=== PATIENT | male | born 1950 | race Caucasian/White ===

== ENCOUNTER → 2021-08-03 | Outpatient (CLI) | payer SELFPAY ==
--- NOTE | 2021-08-03 11:37 | Diagnostic Imaging Report ---
INDICATION: Hyperlipidemia. TECHNIQUE: The CT coronary calcium study was performed with noncontrast CT images of the heart followed by calculation of cardiac calcium score. FINDINGS: Raw data images demonstrate no mediastinal or hilar adenopathy. The thoracic aorta is normal in caliber. The visualized portions of the lung swann demonstrate some linear scarring or atelectasis in the lingula. The entirety of the lung swann is not included on the study. Coronary calcium evaluation demonstrates prominent coronary calcification in the LAD with a score of 405.4. There is some calcification also seen in the circumflex coronary artery with a score of 53.2. There is some calcium in the right coronary artery territory with a score of 46.3. IMPRESSION: Coronary calcium score was 505.0, compatible with an extensive calcific plaque burden. The majority of the calcification is in the LAD territory. Dictated by: Dictated on workstation # [id number]
== END ==
LOC: RAD FS 10:04
PROVIDERS: ATTEND Family Medicine
DX: E78.2 Mixed hyperlipidemia (principal); I25.10 Atherosclerotic heart disease of native coronary artery without angina pectoris
CPT/HCPCS: 75571

== ENCOUNTER → 2021-10-18 | Outpatient (CLI) | payer MEDICARE ==
--- NOTE | 2021-10-18 18:18 | Diagnostic Imaging Report ---
INDICATION: Arthritis COMPARISON: None. FINDINGS: Multiple radiographic views of the bilateral hands were obtained and show no fractures, dislocations, or other acute bony abnormalities. Mild osteoarthritic changes identified bilaterally. No periarticular erosions are seen. Joint spaces are otherwise well-maintained. The soft tissues appear unremarkable. No radiopaque foreign bodies are identified. IMPRESSION: Unremarkable radiographic exam of the bilateral hands. Dictated by: Dictated on workstation # [id number]
== END ==
LOC: RAD FS 14:52
PROVIDERS: ATTEND Family Medicine
DX: M19.049 Primary osteoarthritis, unspecified hand (principal)

== ENCOUNTER 2022-01-23 15:00 | Observation (INO) | payer MEDICARE ==
[~2022-01-23] VITALS: Ht 176 cm; Wt 91.0 kg
[2022-01-23] MEDS ORDERED: KETOROLAC 30 MG/ML VIAL IVP STA (15:35)
--- NOTE | 2022-01-23 15:38 | ED GU-Male ---
General Stated Complaint: KIDNEY STONES Source: patient History of Present Illness Date Seen by Provider: Jan 23, 2022 Time Seen by Provider: 15:27 Initial Comments PT ARRIVES VIA POV FROM HOME IN [place] STATES HE HAS A KIDNEY STONE IN THE RIGHT PT BEGAN HAVING RIGHT FLANK PAIN LAST Sunday01/19/22 WENT TO THE [facility] WALK IN [facility]INIC IN [place] ON SUNDAY/YESTERDAY FOR THIS PROBLEM AND HAD AN OUTPATIENT CT DONE AT [facility] HERE IN [place] TODAY. NO RX'S GIVEN HAD JUST GOTTEN BACK HOME TO [place] AND WAS CONTACTED BY [facility] AND ADVISED TO COME HERE TO THIS ER TO HAVE DR. SHANNON SEE HIM. PT DOES NOT HAVE A HISTORY OF KIDNEY STONES PT STATES PAIN WAS 10/10 YESTERDAY RATES PAIN 8/10 NOW TOOK 2 TYLENOL AT 0700, NOTHING ELSE FOR PAIN NO NAUSEA/VOMITING NO FEVER NO DIFFICULTY URINATING PCP: DR. OLEA, [facility] Allergies and Home Medications Allergies Coded Allergies: No Known Drug Allergies (Unverified , 01/23/22) Patient Home Medication List Home Medication List Reviewed: Yes Aspirin (Aspirin EC) 81 Mg Tablet.dr, 81 MG PO DAILY, (Reported) Entered as Reported by: BRIE ESCOTO on 01/24/221447 Last Action: Reviewed Celecoxib (Celecoxib) 200 Mg Capsule, 200 MG PO HS, (Reported) Entered as Reported by: BRIE ESCOTO on 01/24/221447 Last Action: Reviewed Fluticasone/Salmeterol (Advair Hfa 115-21 Mcg Inhaler) 115 Mcg-21 Mcg/Actuation Hfa.aer.ad, 2 PUFF INH BID PRN for SHORTNESS OF BREATH, (Reported) Entered as Reported by: BRIE ESOCTO on 01/24/221448 Last Action: Reviewed Losartan Potassium (Losartan Potassium) 50 Mg Tablet, 50 MG PO DAILY, (Reported) Entered as Reported by: BRIE ESCOTO on 01/24/221447 Last Action: Reviewed Nitrofurantoin Monohyd/M-Cryst (Macrobid 100 mg Capsule) 100 Mg Capsule, 1 TAB PO BID Prescribed by: NANCY SANCHEZ on 01/24/22 1454 Rosuvastatin Calcium (Rosuvastatin Calcium) 20 Mg Tablet, 20 MG PO HS, (Reported) Entered as Reported by: BRIE ESCOTO on 01/24/22 1448 Last Action: Reviewed Tamsulosin HCl (Flomax) 0.4 Mg Cap, 0.4 MG PO DAILY Prescribed by: NANCY SANCHEZ on 01/24/22 7744 Review of Systems Review of Systems Constitutional: no symptoms reported Respiratory: no symptoms reported Cardiovascular: no symptoms reported Gastrointestinal: see HPI Genitourinary: see HPI Musculoskeletal: see HPI Skin: no symptoms reported; No rash Psychiatric/Neurological: No Symptoms Reported Endocrine: No Symptoms Reported Past Kcqmsdw-Wadxad-Oqsjjm Hx Patient Social History Tobacco Use?: No Substance use?: No Alcohol Use?: No Past Medical History Surgeries: Yes (BACK SURGERY) Orthopedic Respiratory: No Cardiac: Yes High Cholesterol, Hypertension Neurological: No Genitourinary: Yes (DX 01/23/22) Kidney Stones Gastrointestinal: No Musculoskeletal: Yes Chronic Back Pain Endocrine: No HEENT: No Cancer: No Integumentary: No Blood Disorders: No Physical Exam Vital Signs Vital Signs - First Documented 01/23/22 15:29 Pulse 79 Resp 20 B/P (MAP) 168/93 (118) Pulse Ox 97 Capillary Refill : Height, Weight, BMI Height: '" Weight: lbs. oz. 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 tested, no motor/sensory deficits, alert, normal mood/affect, oriented x 3 Skin: normal color, warm/dry; No rash Progress/Results/Core Measures Suspected Sepsis SIRS Temperature: Pulse: Respiratory Rate: Laboratory Tests 01/23/22 15:37: White Blood Count 6.7 Blood Pressure / Mean: Laboratory Tests 01/23/22 15:37: Creatinine 1.73H, Platelet Count 157, Total Bilirubin 0.7 Results/Orders Lab Results Laboratory Tests Test 01/23/22 15:37 01/23/22 15:50 Range/Units White Blood Count 6.7 4.3-11.0 10^3/uL Red Blood Count 3.82 L 4.30-5.52 10^6/uL Hemoglobin 12.1 L 13.3-17.7 g/dL Hematocrit 36 L 40-54 % Mean Corpuscular Volume 94 80-99 fL Mean Corpuscular Hemoglobin 32 25-34 pg Mean Corpuscular Hemoglobin Concent 34 32-36 g/dL Red Cell Distribution Width 13.2 10.0-14.5 % Platelet Count 157 130-400 10^3/uL Mean Platelet Volume 10.1 9.0-12.2 fL Immature Granulocyte % (Auto) 0 % Neutrophils (%) (Auto) 67 42-75 % Lymphocytes (%) (Auto) 17 12-44 % Monocytes (%) (Auto) 10 0-12 % Eosinophils (%) (Auto) 6 0-10 % Basophils (%) (Auto) 0 0-10 % Neutrophils # (Auto) 4.5 1.8-7.8 X 10^3 Lymphocytes # (Auto) 1.1 1.0-4.0 X 10^3 Monocytes # (Auto) 0.7 0.0-1.0 X 10^3 Eosinophils # (Auto) 0.4 H 0.0-0.3 10^3/uL Basophils # (Auto) 0.0 0.0-0.1 10^3/uL Immature Granulocyte # (Auto) 0.0 0.0-0.1 10^3/uL Sodium Level 139 135-145 MMOL/L Potassium Level 3.9 3.6-5.0 MMOL/L Chloride Level 106 98-107 MMOL/L Carbon Dioxide Level 24 21-32 MMOL/L Anion Gap 9 5-14 MMOL/L Blood Urea Nitrogen 20 H 7-18 MG/DL Creatinine 1.73 H 0.60-1.30 MG/DL Estimat Glomerular Filtration Rate 41 BUN/Creatinine Ratio 12 Glucose Level 143 H 70-105 MG/DL Calcium Level 9.1 8.5-10.1 MG/DL Corrected Calcium 9.2 8.5-10.1 MG/DL Total Bilirubin 0.7 0.1-1.0 MG/DL Aspartate Amino Transf (AST/SGOT) 16 5-34 U/L Alanine Aminotransferase (ALT/SGPT) 19 0-55 U/L Alkaline Phosphatase 71 40-136 U/L Total Protein 6.9 6.4-8.2 GM/DL Albumin 3.9 3.2-4.5 GM/DL Urine Color YELLOW Urine Clarity CLEAR Urine pH 5.5 5-9 Urine Specific Carpenter 1.010 L 1.016-1.022 Urine Protein NEGATIVE NEGATIVE Urine Glucose (UA) NEGATIVE NEGATIVE Urine Ketones NEGATIVE NEGATIVE Urine Nitrite NEGATIVE NEGATIVE Urine Bilirubin NEGATIVE NEGATIVE Urine Urobilinogen 0.2 < = 1.0 MG/DL Urine Leukocyte Esterase NEGATIVE NEGATIVE Urine RBC (Auto) 3+ H NEGATIVE Urine RBC 2-5 H /HPF Urine WBC NONE /HPF Urine Squamous Epithelial Cells NONE /HPF Urine Crystals NONE /LPF Urine Bacteria TRACE /HPF Urine Casts NONE /LPF Urine Mucus NEGATIVE /LPF Urine Culture Indicated NO My Orders Orders - RADHA PIZANO DO Ed Iv/Invasive Line Start (01/23/22 15:19) Monitor-Rhythm Ecg Trace Only (01/23/22 15:19) Abdomen/Kub 1view (01/23/22 15:19) Cbc With Automated Diff (01/23/22 15:19) Comprehensive Metabolic Panel (01/23/22 15:19) Ua Culture If Indicated (01/23/22 15:19) Ketorolac Injection (Toradol Injection) (01/23/22 15:35) Tamsulosin Capsule (Flomax Capsule) (01/23/22 15:45) Ed Iv/Invasive Line Start (01/23/22 15:35) Lactated Ringers (Lr 1000 Ml Iv Solution (01/23/22 15:45) Ct Abd/Pelvis Wo(Kidney Stone) (01/23/22 16:10) Ed Admission (Communication) (01/23/22 17:10) Ceftriaxone 1 Gm Pre-Mix (Rocephin 1 Gm (01/23/22 17:15) Medications Given in ED Vital Signs/I&O 01/23/22 15:29 Pulse 79 Resp 20 B/P (MAP) 168/93 (118) Pulse Ox 97 Capillary Refill : Progress Note : Progress Note GIVEN IV FLUIDS, TORADOL AND FLOMAX WITH COMPLETE RELIEF OF PAIN Diagnostic Imaging Comments KUB--PER RADIOLOGIST REPORT AT 1655 FINDINGS: There is a moderate amount of gas and stool throughout the colon. Nonobstructive bowel gas pattern. No radiopaque foreign body. Lumbosacral fusion hardware is present. Degenerative changes of the hips and spine. Osseous structures are otherwise intact. IMPRESSION: Moderate stool burden without other acute abnormality in the abdomen. CT ABDOMEN/PELVIS--PER RADIOLOGIST REPORT AT 1706 FINDINGS: Lung bases: Linear atelectasis or scarring in the lung bases. Solid organs: The liver is normal. The gallbladder is normal. There is no biliary ductal dilation. Pancreas is normal. Spleen is normal. Adrenal glands are normal. There is mild right hydronephrosis. There is a 0.4 cm calculus within the distal right ureter. The left kidney is unremarkable without hydronephrosis. There is a nonobstructing right renal calculus measuring 0.2 cm. Bowel: The stomach and small bowel are normal without obstruction. There is scattered colonic diverticulosis. No findings of acute appendicitis. Peritoneum: There is no intraperitoneal free fluid or free air. No suspicious lymphadenopathy. Vasculature: Calcification of the aorta without aneurysm. Musculoskeletal: Surgical and degenerative changes of the spine without suspicious osseous lesion or compression fracture. Pelvis: The prostate gland is normal. The urinary bladder is normal. IMPRESSION: 1. A 0.4 cm distal right ureteral calculus resulting in mild right hydronephrosis. 2. Additional nonobstructing right renal calculus measuring up to 0.2 cm. 3. Colonic diverticulosis. Reviewed: Reviewed by Me Departure Communication (Admissions) 1608--SPOKE WITH DR. SHANNON, HE ADVISES REPEAT CT SCAN, THERE IS NO WAY FOR HIM OR ME OR VIA [facility] TO REVIEW CT DONE AT [facility] 1655--SPOKE WITH DR. SHANNON, HE WILL REVIEW CT SCAN AND CALL BACK 1707--SPOKE WITH DR. SHANNON, HE ADVISES TO ADMIT PT TO HOSPITALIST, AND HE WILL DO LITHOTRIPSY TOMORROW. 1709/1739--PAGED / SPOKE WITH DR. ALCANTAR, ACCEPTS PT FOR ADMIT. 1746--DR. SHANNON HERE TO SEE PT. Impression Primary Impression: Right distal ureteral calculus Additional Impressions: Renal insufficiency HTN (hypertension) Disposition: ADMITTED INPATIENT Condition: Improved Admissions Decision to Admit Reason: Admit from ER (General) Decision to Admit/Date: Jan 23, 2022 Time/Decision to Admit Time: 17:10 Departure-Patient Inst. Referrals: SELF,CLAIRE MOMIN (PCP/Family) Primary Care Physician Scripts Tamsulosin HCl (Flomax) 0.4 Mg Cap 0.4 MG PO DAILY, #14 CAP Prov: HORACIO SHANNON MD 01/24/22 Nitrofurantoin Monohyd/M-Cryst (Macrobid 100 mg Capsule) 100 Mg Capsule 1 TAB PO BID, #14 CAP Prov: HORACIO SHANNON MD 01/24/22 RADHA PIZANO DO Jan 23, 2022 15:38
[2022-01-23 15:45] LABS: BASOPHILS % (AUTO) 0 % (0-10); EOSINOPHILS # (AUTO) 0.4 10^3/uL (0.0-0.3); EOSINOPHILS % (AUTO) 6 % (0-10); HEMATOCRIT 36 % (40-54); HEMOGLOBIN 12.1 g/dL (13.3-17.7); LYMPHOCYTES # (AUTO) 1.1 X 10^3 (1.0-4.0); LYMPHOCYTES % (AUTO) 17 % (12-44); MEAN CORPUSCULAR HEMOGLOBIN 32 pg (25-34); MEAN CORPUSCULAR HGB CONC 34 g/dL (32-36); MEAN CORPUSCULAR VOLUME 94 fL (80-99); MEAN PLATELET VOLUME 10.1 fL (9.0-12.2); MONOCYTES # (AUTO) 0.7 X 10^3 (0.0-1.0); MONOCYTES % (AUTO) 10 % (0-12); NEUTROPHILS # (AUTO) 4.5 X 10^3 (1.8-7.8); NEUTROPHILS % (AUTO) 67 % (42-75); PLATELET COUNT 157 10^3/uL (130-400); WHITE BLOOD COUNT 6.7 10^3/uL (4.3-11.0)
[2022-01-23] MEDS ORDERED: TAMSULOSIN 0.4 MG (FLOMAX) CAP PO SCH (15:45)
[2022-01-23] MEDS ORDERED: LACTATED RINGERS 1,000 ML IV ONE (15:45)
[2022-01-23 15:56] LABS: BILIRUBIN,URINE NEGATIVE (NEGATIVE); CLARITY,URINE CLEAR; COLOR,URINE YELLOW; GLUCOSE, URINE (UA) NEGATIVE (NEGATIVE); KETONES,URINE NEGATIVE (NEGATIVE); LEUKOCYTE ESTERASE ,URINE NEGATIVE (NEGATIVE); NITRITE,URINE NEGATIVE (NEGATIVE); PH,URINE 5.5 (5-9); PROTEIN,URINE NEGATIVE (NEGATIVE)
[2022-01-23 15:59] LABS: ALBUMIN 3.9 GM/DL (3.2-4.5); POTASSIUM 3.9 MMOL/L (3.6-5.0)
[2022-01-23 16:00] LABS: CALCIUM 9.1 MG/DL (8.5-10.1)
[2022-01-23 16:02] LABS: TOTAL PROTEIN 6.9 GM/DL (6.4-8.2)
[2022-01-23 16:03] LABS: BILIRUBIN,TOTAL 0.7 MG/DL (0.1-1.0)
[2022-01-23 16:05] LABS: CREATININE SERUM 1.73 MG/DL (0.60-1.30)
--- NOTE | 2022-01-23 16:08 | Diagnostic Imaging Report ---
EXAMINATION: Abdomen 1 view HISTORY: abdomen pain COMPARISON: None available. FINDINGS: There is a moderate amount of gas and stool throughout the colon. Nonobstructive bowel gas pattern. No radiopaque foreign body. Lumbosacral fusion hardware is present. Degenerative changes of the hips and spine. Osseous structures are otherwise intact. IMPRESSION: Moderate stool burden without other acute abnormality in the abdomen. Dictated by: Dictated on workstation # [id number]
[2022-01-23 16:40] LABS: BACTERIA,URINE TRACE /HPF
--- NOTE | 2022-01-23 16:58 | Diagnostic Imaging Report ---
EXAMINATION: CT abdomen and pelvis without contrast. TECHNIQUE: Multiple contiguous axial images were obtained through the abdomen and pelvis without the use of intravenous contrast. All CT scans use one or more of the following dose optimizing techniques: Automated exposure control, MA and/or KvP adjustment based on patient size and exam type or iterative reconstruction. HISTORY: Flank pain, kidney stone suspected COMPARISON: None available. FINDINGS: Lung bases: Linear atelectasis or scarring in the lung bases. Solid organs: The liver is normal. The gallbladder is normal. There is no biliary ductal dilation. Pancreas is normal. Spleen is normal. Adrenal glands are normal. There is mild right hydronephrosis. There is a 0.4 cm calculus within the distal right ureter. The left kidney is unremarkable without hydronephrosis. There is a nonobstructing right renal calculus measuring 0.2 cm. Bowel: The stomach and small bowel are normal without obstruction. There is scattered colonic diverticulosis. No findings of acute appendicitis. Peritoneum: There is no intraperitoneal free fluid or free air. No suspicious lymphadenopathy. Vasculature: Calcification of the aorta without aneurysm. Musculoskeletal: Surgical and degenerative changes of the spine without suspicious osseous lesion or compression fracture. Pelvis: The prostate gland is normal. The urinary bladder is normal. IMPRESSION: 1. A 0.4 cm distal right ureteral calculus resulting in mild right hydronephrosis. 2. Additional nonobstructing right renal calculus measuring up to 0.2 cm. 3. Colonic diverticulosis. Dictated by: Dictated on workstation # [id number]
[2022-01-23] MEDS ORDERED: cefTRIAXone 1 GM PRE-MIX 50 ML IV ONE (17:15)
[2022-01-23 18:42] VITALS: BP 159/82
[2022-01-23] MEDS ORDERED: diphenhydrAMINE 50 MG/ML INJ (BENADRYL) IVP PRN (18:45)
[2022-01-23] MEDS ORDERED: BISACODYL 10 MG SUPP (DULCOLAX) PR PRN (18:45)
[2022-01-23] MEDS ORDERED: CALCIUM CARBONATE 500 MG (TUMS) TAB.CHEW PO PRN (18:45)
[2022-01-23] MEDS ORDERED: polyethylene glycoL POWDER 17 GM (MIRALAX) PACK PO PRN (18:45)
[2022-01-23] MEDS ORDERED: cloNIDine 0.1 MG (CATAPRES) TAB PO PRN (18:45)
[2022-01-23] MEDS ORDERED: ONDANSETRON 4 MG/2 ML (SDV) Z0FRAN IV PRN (18:45)
[2022-01-23] MEDS ORDERED: ONDANSETRON 4 MG (ZOFRAN) ORAL DISSOLVE TAB PO PRN (18:45)
[2022-01-23] MEDS ORDERED: HYDROmorphone 2 MG/ML VIAL (DILAUDID) IVP PRN (18:45)
[2022-01-23] MEDS ORDERED: amLODIPine 5 MG (NORVASC) TAB PO NR (18:45)
[2022-01-23] MEDS ORDERED: ANTACID SUSP 30 ML UDC (MYLANTA) PO PRN (18:45)
[2022-01-23] MEDS ORDERED: diphenhydrAMINE 25 MG TAB (BENADRYL) PO PRN (18:45)
[2022-01-23] MEDS ORDERED: MELATONIN 3 MG TABLET PO PRN (18:45)
[2022-01-23] MEDS ORDERED: MILK OF MAGNESIA 400 MG/5 ML 30 ML UDC PO PRN (18:45)
[2022-01-23] MEDS ORDERED: LACTULOSE SYRUP 10GM/15ML (ENULOSE) 30ML UDC PO PRN (18:45)
[2022-01-23] MEDS ORDERED: ACETAMINOPHEN 325 MG TABLET PO PRN (18:45)
--- NOTE | 2022-01-23 18:48 | History & Physical-Hospitalist ---
History of Present Illness HPI/Chief Complaint CC: Kidney stone with renal colic and hydronephrosis with TIARRA HPI: This is a 71yoWM clinic patient of [facility] who presents to the ER with severe renal colic due to kidney stone. The stone was found to be in the ureter and c ausing hydronephrosis and TIARRA. The decision was made to admit for IVF and pain meds and lithotripsy will be performed to prevent kidney failure. Source: patient, family Exam Limitations: no limitations Date Seen 01/23/22 Time Seen by a Provider: 18:45 Attending Physician Roly Ledesma MD PCP Admitting Physician: Liza Jay DO Attending Physician: Liza Jay DO Referring Physician Date of Admission Jan 23, 2022 at 17:11 Home Medications & Allergies Home Medications Reviewed patient Home Medication Reconciliation performed by pharmacy medication reconciliations tire and lube technician and/or nursing. Patients Allergies have been reviewed. Allergies Allergies Coded Allergies No Known Drug Allergies (Unverified01/23/22) Past Xcmxpcq-Cwqbtj-Ioodjf Hx Patient Social History Marrital Status: Employed/Student: retired Tobacco Use?: No Smoking Status: Former Smoker Use of E-Cig and/or Vaping dev: No Substance use?: No Alcohol Use?: No Current Status Communicates: Verbally Primary Language: Mongolian Preferred Spoken Language: Mongolian Is interpretation needed?: No Sensory deficits: Hearing impairment Past Medical History High Cholesterol, Hypertension Review of Systems Constitutional: see HPI, malaise, weakness EENTM: no symptoms reported Respiratory: no symptoms reported Cardiovascular: no symptoms reported Gastrointestinal: abdominal pain, loss of appetite, nausea, vomiting Genitourinary: decreased output Musculoskeletal: no symptoms reported Skin: no symptoms reported Psychiatric/Neurological: No Symptoms Reported All Other Systems Reviewed Negative Unless Noted: Yes Physical Exam Physical Exam Vital Signs Vital Signs - First Documented 01/23/22 01/23/22 01/23/22 15:29 18:42 19:22 Temp 36.5 Pulse 79 Resp 20 B/P (MAP) 168/93 (118) Pulse Ox 97 O2 Delivery Room Air FiO2 21 Capillary Refill : Height, Weight, BMI Height: '" Weight: lbs. oz. kg; 27.00 BMI Method: General Appearance: Anxious, Mild Distress Eyes: Right Eye Normal Inspection, Right Eye PERRL HEENT: PERRL/EOMI, Normal ENT Inspection, Pharynx Normal, Moist Mucous Membranes Neck: Full Range of Motion, Normal Inspection, Non Tender Respiratory: Chest Non Tender, Lungs Clear, Normal Breath Sounds, No Accessory Muscle Use, No Respiratory Distress Cardiovascular: Regular Rate, Rhythm, No Edema, No Gallop, No JVD, No Murmur, Normal Peripheral Pulses Gastrointestinal: Normal Bowel Sounds, No Organomegaly, No Pulsatile Mass, Non Tender, Soft Back: Normal Inspection, No CVA Tenderness, No Vertebral Tenderness Extremity: Normal Capillary Refill, Normal Inspection, Normal Range of Motion, Non Tender, No Calf Tenderness, No Pedal Edema Neurologic/Psychiatric: Alert, Oriented x3, No Motor/Sensory Deficits, Normal Mood/Affect Skin: Normal Color, Warm/Dry Lymphatic: No Adenopathy Results Results/Procedures Labs Laboratory Tests 01/23/22 15:37 Patient resulted labs reviewed. Assessment/Plan Admission Diagnosis Assessment: Acute renal colic Right ureteral stone causing hydronephrosis with TIARRA HTN HLP Plan: IVF Pain meds Dr Figueroa appreciated Admission Status: Observation Diagnosis/Problems Diagnosis/Problems (1) Right distal ureteral calculus (2) HTN (hypertension) (3) Renal insufficiency Clinical Quality Measures DVT/VTE Risk/Contraindication: Contraindications-Pharm: Other *list below* Other: surgery tomorrow LIZA JAY DO Jan 23, 2022 18:48
[2022-01-23] MEDS: NS IV 1000 ML 1,000 ML IV SCH (18:51)
[2022-01-23 19:22] VITALS: BP 168/93
[2022-01-23] MEDS ORDERED: RT-ALBUTEROL SULF 2.5 MG/3 ML PRE-MIX VIAL INH PRN (19:45)
[2022-01-23 20:00] VITALS: BP 153/82
[2022-01-23] MEDS: DOCUSATE SODIUM 100 MG (COLACE) CAP PO SCH (21:44)
[2022-01-23] MEDS: SENNOSIDES 8.6 MG (SENOKOT) TAB PO SCH (21:45)
[2022-01-23] MEDS: TAMSULOSIN 0.4 MG (FLOMAX) CAP PO SCH (21:47)
--- NOTE | 2022-01-23 22:17 | CONSULTATION REPORT ---
DATE OF SERVICE: 01/23/2022 ATTENDING PHYSICIAN: Dr. Jay. SUMMARY: After reviewing the patient's record, x-rays, interviewing him and examining him, this is a 71-year-old white man another ER visit because of severe intractable right flank pain secondary to a distal right ureteral stone. He denied previous similar episodes. FAMILY HISTORY: Noncontributory. MEDICAL ILLNESSES: Hypertension for which he takes medicines per chart. His vitals were reviewed, his labs as well. PHYSICAL EXAMINATION: GENERAL: Well-nourished, well-developed, in no acute distress at the time of my examination, the patient has been medicated with pain medicines. HEENT: Head is normocephalic. NECK: Supple, no bruits. SKIN: Warm and dry. ENT: Unremarkable. CHEST: Clear. HEART: Regular rate and rhythm. ABDOMEN: Soft. There was a 1+ right CVA tenderness. EXTREMITIES: Lower extremity, no edema or cyanosis. NEUROLOGIC: Grossly intact. EXTERNAL GENITALIA: Adequate male configuration. RECTAL: Deferred. IMPRESSION: 1. Right distal ureteral stone with pain, obstruction. 2. Hypertension by history. 3. Some renal insufficiency at the present admission, most probably secondary to obstruction from the stone. PLAN: Continue admission plan with pain control, hydration, strain all urine, antibiotics and Flomax. Keep the patient n.p.o. after midnight, get a KUB in the morning and proceed with surgery tomorrow unless he passes the stone. Proceeding with a right ureteroscopy with stone lithotripsy, possible basket, stent, ESWL or lithotomy. Procedure was fully explained to him and his and all his questions were answered. Need for more than one surgery for the stone was also stressed. CC: [facility] -- requested, unable to deliver. CC: Dr. Betzy Salinas -- requested, unable to deliver. Job ID: [id number] DocumentID: [id number] Dictated Date: 01/23/2022 18:12:19 [employer] Date: 01/23/2022 22:16:45 Dictated By: HORACIO SHANNON MD [facility]
[2022-01-23 23:07] VITALS: BP 129/69
[2022-01-24] VITALS (11 sets, daily range): BP systolic 90–161; BP diastolic 56–78
[2022-01-24] MEDS: NS IV 1000 ML 1,000 ML IV SCH ×2 (03:29→12:39)
--- NOTE | 2022-01-24 05:51 | Progress Note - Hospitalist ---
Subjective HPI/CC On Admission Date Seen by Provider: Jan 24, 2022 Time Seen by Provider: 09:00 CC: Kidney stone with renal colic and hydronephrosis with TIARRA HPI: This is a 71yoWM clinic patient of [facility] who presents to the ER with severe renal colic due to kidney stone. The stone was found to be in the ureter and causing hydronephrosis and TIARRA. The decision was made to admit for IVF and pain meds and lithotripsy will be performed to prevent kidney failure. Objective Exam Vital Signs Vital Signs Date Time Temp Pulse Resp B/P (MAP) Pulse Ox O2 Delivery O2 Flow Rate FiO2 01/24/22 15:39 36.5 66 19 161/75 97 Room Air 01/24/22 11:20 3 01/23/22 19:22 21 Capillary Refill : Results/Procedures Lab Laboratory Tests 01/24/22 05:30 Patient resulted labs reviewed. Assessment/Plan Assessment and Plan Assess & Plan/Chief Complaint Assessment: Acute renal colic Right ureteral stone causing hydronephrosis with TIARRA HTN HLP Plan: IVF Pain meds Dr Figueroa appreciated Diagnosis/Problems Diagnosis/Problems (1) Right distal ureteral calculus (2) HTN (hypertension) (3) Renal insufficiency Clinical Quality Measures DVT/VTE Risk/Contraindication: Contraindications-Pharm: Other *list below* Other: surgery tomorrow LIZA ALCANTAR DO Jan 24, 2022 05:51
[2022-01-24 06:05] LABS: BASOPHILS % (AUTO) 1 % (0-10); EOSINOPHILS # (AUTO) 0.5 10^3/uL (0.0-0.3); EOSINOPHILS % (AUTO) 8 % (0-10); HEMATOCRIT 35 % (40-54); HEMOGLOBIN 11.3 g/dL (13.3-17.7); LYMPHOCYTES # (AUTO) 1.2 10^3/uL (1.0-4.0); LYMPHOCYTES % (AUTO) 19 % (12-44); MEAN CORPUSCULAR HEMOGLOBIN 31 pg (25-34); MEAN CORPUSCULAR HGB CONC 33 g/dL (32-36); MEAN CORPUSCULAR VOLUME 96 fL (80-99); MEAN PLATELET VOLUME 10.7 fL (9.0-12.2); MONOCYTES # (AUTO) 0.6 10^3/uL (0.0-1.0); MONOCYTES % (AUTO) 9 % (0-12); NEUTROPHILS # (AUTO) 3.9 10^3/uL (1.8-7.8); NEUTROPHILS % (AUTO) 64 % (42-75); PLATELET COUNT 139 10^3/uL (130-400); WHITE BLOOD COUNT 6.2 10^3/uL (4.3-11.0)
[2022-01-24 06:13] LABS: ALBUMIN 3.4 GM/DL (3.2-4.5)
[2022-01-24 06:15] LABS: CALCIUM 8.6 MG/DL (8.5-10.1)
[2022-01-24 06:18] LABS: BILIRUBIN,TOTAL 0.5 MG/DL (0.1-1.0)
[2022-01-24 06:19] LABS: CREATININE SERUM 1.87 MG/DL (0.60-1.30)
--- NOTE | 2022-01-24 07:21 | Progress Note-Pre Operative ---
Pre-Operative Progress Note H&P Reviewed The H&P was reviewed, patient examined and no changes noted. Date Seen by Provider: Jan 24, 2022 Time Seen by Provider: 07:20 Date H&P Reviewed: Jan 24, 2022 Time H&P Reviewed: 07:20 Pre-Operative Diagnosis: RT DISTAL URETERAL STONE HORACIO SHANNON MD Jan 24, 2022 07:21
--- NOTE | 2022-01-24 08:21 | Diagnostic Imaging Report ---
INDICATION: History of distal ureteral calculus. COMPARISON: 01/23/2022 FINDINGS: 2 frontal radiographic views of the abdomen were obtained. Small bowel loops are nondistended. There is no large collection of free intraperitoneal air. Moderate air and stool is noted within the ascending colon. No unexpected radiopaque foreign bodies are seen. Multiple extraosseous calcifications are noted projecting over the pelvis, bilaterally. It is unclear if these represent vascular calcifications or patient's known distal right ureteral calculus. Appearance is stable compared to one day prior. IMPRESSION: 1. Nonobstructed small bowel gas pattern. 2. Multiple pelvic extraosseous calcifications. Appearance is stable compared to 01/23/2022. Dictated by: Dictated on workstation # [id number]
[2022-01-24] MEDS: DOCUSATE SODIUM 100 MG (COLACE) CAP PO SCH (08:25)
[2022-01-24] MEDS: SENNOSIDES 8.6 MG (SENOKOT) TAB PO SCH (08:26)
[2022-01-24] MEDS: TAMSULOSIN 0.4 MG (FLOMAX) CAP PO SCH (08:26)
[2022-01-24] MEDS ORDERED: amLODIPine 5 MG (NORVASC) TAB PO SCH (09:00)
[2022-01-24] MEDS ORDERED: cefTRIAXone 1 GM PRE-MIX 50 ML IV SCH (09:00)
[2022-01-24] MEDS: LACTATED RINGERS 1,000 ML IV PRN ×2 (09:46→11:01)
--- NOTE | 2022-01-24 09:54 | Progress Note-Post Operative ---
Post-Operative Progess Note Surgeon (s)/[employer] (s) Surgeon HORACIO SHANNON MD [employer]: NONE Pre-Operative Diagnosis RT DISTAL URETERAL STONE Post-Operative Diagnosis SAME Procedure & Operative Findings Date of Procedure 01/24/22 Procedure Performed/Findings RT ESWL Anesthesia Type GENERAL Estimated Blood Loss Estimated blood loss (mL): NONE Specimens/Packing Specimens Removed NONE Packing: NONE HORACIO SHANNON MD Jan 24, 2022 09:54
[2022-01-24] MEDS ORDERED: proPOfol 200 MG/20 ML (DIPRIVAN) VIAL IV ONE (10:12)
[2022-01-24] MEDS ORDERED: fentaNYL INJ 100 MCG/2 ML AMP ONE (10:12)
[2022-01-24] MEDS ORDERED: LIDOCAINE PF 2% 5 ML (XYLOCAINE) VIAL ONE (10:12)
[2022-01-24] MEDS ORDERED: ONDANSETRON 4 MG/2 ML (SDV) Z0FRAN ONE (10:12)
[2022-01-24] MEDS ORDERED: GLYCOPYRROLATE 0.2 MG/ML (ROBINUL) 2 ML VIAL ONE (10:49)
[2022-01-24] MEDS ORDERED: KETOROLAC 30 MG/ML VIAL ONE (10:51)
[2022-01-24] MEDS ORDERED: FUROSEMIDE 40 MG/4 ML INJ (LASIX) ONE (10:51)
--- NOTE | 2022-01-24 10:55 | Discharge Inst-Urology ---
Discharge Inst-Urology Reconcile Patient Problems Problems Reviewed?: Yes Final Diagnosis RT DISTAL URETERAL STONE Patient Instructions/Follow Up Plan/Assessment/Instructions Discharge once awake, stable, tolerates PO fluids and OK with admitting physician Please make appointment to been seen in office in 2 weeks, KUB prior to it please give patient my written slip. KUB on way home today Post ESWL instructions to patient Increase oral fluids for 48 hours and then as needed. Diet and Activity as tolerated. If questions or concerns contact your physician Or seek help at emergency department. HORACIO SHANNON MD Jan 24, 2022 10:55
[2022-01-24] MEDS ORDERED: SEVOFLURANE (ULTANE) 15 ML INHAL SOLN ONE (11:08)
[2022-01-24] MEDS ORDERED: ONDANSETRON 4 MG/2 ML (SDV) Z0FRAN IVP PRN (11:15)
[2022-01-24] MEDS ORDERED: morphine INJ 10 MG/ML 1ML (SYR OR VIAL) IVP ONE (11:15)
[2022-01-24] MEDS ORDERED: CELE-63 PO (14:48)
[2022-01-24] MEDS ORDERED: LOSA50TA63 PO (14:48)
[2022-01-24] MEDS ORDERED: ROSU20TA32 PO (14:48)
[2022-01-24] MEDS ORDERED: ASPI-1238 PO (14:48)
[2022-01-24] MEDS ORDERED: FLUT12AE4 INH (14:49)
[2022-01-24] MEDS ORDERED: NITR-65 PO (14:54)
[2022-01-24] MEDS ORDERED: TMSL.4C PO (14:54)
--- NOTE | 2022-01-24 15:03 | OPERATIVE REPORT ---
DATE OF SERVICE: 01/24/2022 PREOPERATIVE DIAGNOSIS: Right distal ureteral stone. POSTOPERATIVE DIAGNOSIS: Right distal ureteral stone. OPERATION PERFORMED: Right ESWL. SURGEON: Js Shannon MD ANESTHESIA: General. COMPLICATIONS: None. DESCRIPTION OF PROCEDURE: Under satisfactory general anesthesia, the patient in supine position on the ESWL table, the right distal ureteral stone was localized. Shocks were delivered at kV of 6, 2500 shocks completely fragmented the stone. The patient received 50 mg of Toradol, and 40 mg of Lasix IV at the end of the procedure. He tolerated the procedure and anesthesia well and was sent to recovery room in stable condition. CC: [facility] - requested, unable to deliver. CC: Dr. Jay - requested, unable to deliver. Job ID: [id number] DocumentID: [id number] Dictated Date: 01/24/2022 10:56:57 [employer] Date: 01/24/2022 15:02:39 Dictated By: JS SHANNON MD
--- NOTE | 2022-01-24 15:43 | Diagnostic Imaging Report ---
INDICATION: Post ESWL. COMPARISON: Exam is compared with radiograph earlier this same date and correlated with abdominopelvic CT 01/23/2022. FINDINGS: At the level of the distal right ureteral stone as demonstrated at earlier CT, there are multiple vascular calcifications more posteriorly as well as anteriorly which project over the level of that prior stone and may easily obscure that lesion. Left pelvic calcifications are unchanged and phleboliths. No new abnormality. There has been no appreciable change. IMPRESSION: No convincing visualization of ureteral stones; however, this patient has multiple pelvic calcifications outside the ureter on the right at the very same level where a stone was present on earlier CT. Dictated by: Dictated on workstation # [id number]
--- NOTE | 2022-01-24 20:26 | Discharge Summary ---
Discharge Summary Hospital Course Was the Problem List Reviewed?: Yes Problems/Dx: (1) Right distal ureteral calculus (2) HTN (hypertension) (3) Renal insufficiency Hospital Course Date of Admission: Jan 23, 2022 at 17:11 Admission Diagnosis : Family Physician/Provider: Roly Ledesma MD Date of Discharge: 01/24/22 Discharge Diagnosis: right ureteral stone, hydronephrosis Hospital Course: Hospital course: Patient had an uneventful overnight hospital course after he was admitted for ureteral stone with hydronephrosis and acute kidney injury with UTI. Patient was placed on Rocephin 1 g IV daily. He underwent uncomplicated lithotripsy by urology and remained stable and will hold Celebrex when he is discharged finish up on antibiotics and have follow-up with urology. Labs and Pending Lab Test: Laboratory Tests 01/24/22 05:30: White Blood Count 6.2, Red Blood Count 3.61L, Hemoglobin 11.3L, Hematocrit 35L, Mean Corpuscular Volume 96, Mean Corpuscular Hemoglobin 31, Mean Corpuscular Hemoglobin Concent 33, Red Cell Distribution Width 13.0, Platelet Count 139, Mean Platelet Volume 10.7, Immature Granulocyte % (Auto) 0, Neutrophils (%) (Auto) 64, Lymphocytes (%) (Auto) 19, Monocytes (%) (Auto) 9, Eosinophils (%) (Auto) 8, Basophils (%) (Auto) 1, Neutrophils # (Auto) 3.9, Lymphocytes # (Auto) 1.2, Monocytes # (Auto) 0.6, Eosinophils # (Auto) 0.5H, Basophils # (Auto) 0.0, Immature Granulocyte # (Auto) 0.0, Sodium Level 141, Potassium Level 4.0, Chloride Level 110H, Carbon Dioxide Level 22, Anion Gap 9, Blood Urea Nitrogen 20H, Creatinine 1.87H, Estimat Glomerular Filtration Rate 38, BUN/Creatinine Ratio 11, Glucose Level 96, Calcium Level 8.6, Corrected Calcium 9.1, Total Bilirubin 0.5, Aspartate Amino Transf (AST/SGOT) 14, Alanine Aminotransferase (ALT/SGPT) 16, Alkaline Phosphatase 62, Total Protein 6.0L, Albumin 3.4 Home Meds Active Flomax (Tamsulosin HCl) 0.4 Mg Cap 0.4 Mg PO DAILY Macrobid 100 mg Capsule (Nitrofurantoin Monohyd/M-Cryst) 100 Mg Capsule 1 Tab PO BID Reported Advair Hfa 115-21 Mcg Inhaler (Fluticasone/Salmeterol) 115 Mcg-21 Mcg/Actuation Hfa.aer.ad 2 Puff INH BID PRN Aspirin EC (Aspirin) 81 Mg Tablet.dr 81 Mg PO DAILY Rosuvastatin Calcium 20 Mg Tablet 20 Mg PO HS Losartan Potassium 50 Mg Tablet 50 Mg PO DAILY Celecoxib 200 Mg Capsule 200 Mg PO HS Assessment/Pt Instructions pcp 1 week Discharge Planning: <30 minutes discharge planning Discharge Instructions Discharge Diet: No Restrictions Discharge Physical Examination Vital Signs Vital Signs Date Time Temp Pulse Resp B/P (MAP) Pulse Ox O2 Delivery O2 Flow Rate FiO2 01/24/22 15:39 36.5 66 19 161/75 97 Room Air 01/24/22 11:20 3 01/23/22 19:22 21 General Appearance: No Apparent Distress, WD/WN Allergies: Coded Allergies: No Known Drug Allergies (Unverified , 01/23/22) Discharge Summary Date of Admission Jan 23, 2022 at 17:11 Date of Discharge Jan 24, 2022 at 15:43 Discharge Date: Jan 24, 2022 Admission Diagnosis Assessment: Acute renal colic Right ureteral stone causing hydronephrosis with TIARRA HTN HLP Plan: IVF Pain meds Dr Figueroa appreciated Discharge Diagnosis Assessment: Acute renal colic Right ureteral stone causing hydronephrosis with TIARRA HTN HLP Plan: IVF Pain meds Dr Figueroa appreciated (1) Right distal ureteral calculus (2) HTN (hypertension) (3) Renal insufficiency Clinical Quality Measures DVT/VTE Risk/Contraindication: Contraindications-Pharm: Other *list below* Other: surgery tomorrow LIZA ALCANTAR DO Jan 24, 2022 20:26
--- NOTE | 2022-01-25 12:52 | Anesthesia-General Post-Op ---
General Patient Condition Mental Status/LOC: Same as Preop Cardiovascular: Satisfactory Nausea/Vomiting: Absent Respiratory: Satisfactory Pain: Controlled Complications: Absent Post Op Complications Complications None Follow Up Care/Instructions Patient Instructions None needed. Anesthesia/Patient Condition Patient Condition Patient is doing well, no complaints, stable vital signs, no apparent adverse anesthesia problems. No complications reported per nursing. KIA HAYDEN CRNA Jan 25, 2022 12:52
== END 2022-01-24 15:43 | disposition home or self-care (01) ==
LOC: EDUNIT# 15:00 → ER 15:02 → 4TH 17:11
PROVIDERS: ADMIT Internal Medicine; ATTEND Internal Medicine
DX: N13.2 Hydronephrosis with renal and ureteral calculous obstruction (principal); I10 Essential (primary) hypertension; N17.9 Acute kidney failure, unspecified; E78.5 Hyperlipidemia, unspecified; N28.9 Disorder of kidney and ureter, unspecified; Z87.891 Personal history of nicotine dependence
CPT/HCPCS: 36415; 74018; 74176; 80053; 81000; 85025; 87081; 96361; 96376; G0378

== ENCOUNTER → 2022-02-03 | Outpatient (CLI) | payer MEDICARE ==
[~2022-02-03] MED LIST: ASPI-1238 PO; CELE-63 PO; FLUT12AE4 INH; LOSA50TA63 PO; NITR-65 PO; ROSU20TA32 PO; TMSL.4C PO
--- NOTE | 2022-02-03 11:01 | Diagnostic Imaging Report ---
INDICATION: History of right ureteral calculus. COMPARISON: 02/03/2022 FINDINGS: 2 frontal radiographic views of the abdomen were obtained. Small bowel loops are nondistended. There is no large collection of free intraperitoneal air. Multiple extraosseous pelvic calcifications are again identified and appear stable compared to prior exam. No unexpected radiopaque foreign bodies are seen. IMPRESSION: 1. Nonobstructive small bowel gas pattern. 2. Stable extraosseous calcifications of the pelvis. Dictated by: Dictated on workstation # [id number]
== END ==
LOC: RAD 09:42
PROVIDERS: ATTEND Urology
DX: N20.1 Calculus of ureter (principal)
CPT/HCPCS: 74018

== ENCOUNTER → 2022-02-09 | Outpatient (CLI) | payer MEDICARE | LOC: CARDFS 10:11 | PROVIDERS: ATTEND Internal Medicine Cardiovascular Disease | DX: I34.0 Nonrheumatic mitral (valve) insufficiency (principal); R94.31 Abnormal electrocardiogram [ECG] [EKG] | CPT/HCPCS: 93306 ==

== ENCOUNTER → 2022-02-16 | Outpatient (CLI) | payer MEDICARE ==
[~2022-02-16] VITALS: Ht 175 cm; Wt 84.0 kg
[~2022-02-16] MED LIST changes: +CATHETER FLUSH 10 ML SYR IVP PRN; +REGADENOSON 0.4 MG/5 ML SYR (LEXISCAN) IV ONE
--- NOTE | 2022-02-17 17:51 | NUCLEAR STRESS TEST ---
REGADENOSON NUCLEAR STRESS Date of procedure: 02/16/2022. Primary care provider: Roly Ledesma MD Admitting physician: Wallace Parsons Jr., MD. INDICATION: Abnormal electrocardiogram. BASELINE ELECTROCARDIOGRAM: Sinus rhythm with poor R wave progression and nonspecific ST changes. STRESS TEST PROCEDURE: This was initially started as a treadmill nuclear stress test but the patient could not attain his target heart rate. The test was then changed over to a pharmacological stress test. However, while the patient was exercising, there was approximately [address] depression in the inferolateral leads at peak exercise. The patient did exhibit good exercise capacity for age at 7 minutes and 13 seconds of the Azael protocol attaining a maximum MET level of 8.7. The patient was then administered 0.4 mg of intravenous Regadenoson. The resting heart rate was 75 bpm and the peak heart rate was 91 bpm. The resting blood pressure was 154/72 mmHg and the minimum blood pressure was 131/72 mmHg. This represents a normal heart rate and a normal blood pressure response to Regadenoson. The test was stopped due to the protocol. There was no chest discomfort during the test. There were isolated premature ventricular complexes during the test. A pharmacological stress electrocardiogram was indeterminant due to the pre-existing ST changes that occurred during exercise as outlined above. NUCLEAR PROCEDURE: The patient was administered 10.6 mCi of intravenous technetium 99m Tetrofosmin at rest for the rest images. The patient was subsequently administered 30.7 mCi of intravenous technetium 99m Tetrofosmin at peak stress for the stress images. Following an appropriate wait after each injection, imaging was obtained. The images were subsequently processed and reformatted in the usual views. Gated imaging was obtained. The image quality was adequate with a mild degree of gastrointestinal attenuation artifact. CT attenuation correction was used as a adjunct to standard imaging. Both the corrected and uncorrected images were reviewed for interpretation. NUCLEAR RESULTS: There was a large, moderate intensity, predominantly reversible basal to mid inferior and lateral defect with a large amount of inducible ischemia with a summed stress score of 17 and a summed difference score of 11. This area did improve with CT attenuation correction but was still abnormal. There was normal left ventricular chamber size with an end-diastolic volume of 82 mL and an end-systolic volume of 48 mL. There was no evidence of transient ischemic dilatation. The TID ratio was 0.93. There was global hypokinesis with a calculated ejection fraction of 41%. IMPRESSION: 1. Normal heart rate and blood pressure response to regadenoson. 2. There was no chest discomfort during the test. 3. There were isolated premature ventricular complexes during the test. 4. The patient did develop positive exercise induced electrocardiogram changes but he could not attain his target heart rate. The test was then changed over t o a pharmacologic stress test. 5. The patient did exhibit good exercise capacity for age at 7 minutes and 13 seconds of the Azael protocol attaining a maximum MET level of 8.7. 6. There was a large, moderate intensity, predominantly reversible basal to mid inferior and lateral defect with a large amount of inducible ischemia with a summed stress score of 17 and a summed difference score of 11. This area did improve with CT attenuation correction but was still abnormal. 7. There was global hypokinesis with a calculated ejection fraction of 41%. 8. This is an abnormal result representing an overall high risk for possible future coronary ischemic events. Certain portions of this document may have been dictated utilizing voice recognition technology. Inherent to this technology, typographical and grammatical errors may exist. As much as I am diligent to identify and correct these mistakes, some errors may remain in the document. WALLACE PARSONS JR, MD Feb 17, 2022 17:51
== END ==
LOC: CARD 08:15
PROVIDERS: ATTEND Internal Medicine Cardiovascular Disease
DX: R94.31 Abnormal electrocardiogram [ECG] [EKG] (principal)
CPT/HCPCS: 78452; 93017; A9502

== ENCOUNTER → 2022-02-21 | Outpatient (CLI) | payer MEDICARE ==
[~2022-02-21] MED LIST changes: -CATHETER FLUSH 10 ML SYR IVP PRN; +ISOS30TA82 PO; +METO-352 PO; -REGADENOSON 0.4 MG/5 ML SYR (LEXISCAN) IV ONE
[2022-02-21 10:09] LABS: PROTHROMBIN TIME PATIENT 13.8 SEC (12.2-14.7)
[2022-02-21 10:55] LABS: CALCIUM 9.6 MG/DL (8.5-10.1); CREATININE SERUM 1.14 MG/DL (0.60-1.30); POTASSIUM 4.5 MMOL/L (3.6-5.0)
== END ==
LOC: LAB FS 07:21
PROVIDERS: ATTEND Internal Medicine Cardiovascular Disease
DX: I25.118 Atherosclerotic heart disease of native coronary artery with other forms of angina pectoris (principal)
CPT/HCPCS: 36415; 80048; 85610

== ENCOUNTER 2022-02-23 07:47 | Day surgery (SDC) | payer MEDICARE ==
[~2022-02-23] VITALS: Ht 175.3 cm; Wt 87.5 kg
[~2022-02-23 07:47] MED LIST changes: -ISOS30TA82 PO; -METO-352 PO
[2022-02-23] MEDS ORDERED: LIDOCAINE 1% INJ 20 ML VIAL ONE (07:53)
[2022-02-23] MEDS ORDERED: HEParin (CATH LAB) 2,000 ML IV ONE (07:53)
[2022-02-23] MEDS ORDERED: CATHETER FLUSH 10 ML SYR IV PRN (08:00)
[2022-02-23] MEDS ORDERED: NS IV 1000 ML 1,000 ML IV ONE (08:00)
[2022-02-23] MEDS ORDERED: ASPIRIN 81 MG CHEW (CHILDREN'S ASA) PO ONE ×2 (08:00→08:15)
[2022-02-23 08:04] VITALS: BP 148/91
[2022-02-23] MEDS ORDERED: fentaNYL INJ 100 MCG/2 ML AMP ONE (08:12)
[2022-02-23] MEDS ORDERED: ASPIRIN 81 MG CHEW (CHILDREN'S ASA) ONE (08:12)
[2022-02-23] MEDS ORDERED: MIDAZOLAM 5 MG/5 ML (VERSED) VIAL ONE (08:12)
[2022-02-23 08:26] LABS: BASOPHILS % (AUTO) 1 % (0-10); EOSINOPHILS # (AUTO) 0.7 10^3/uL (0.0-0.3); EOSINOPHILS % (AUTO) 9 % (0-10); HEMATOCRIT 37 % (40-54); HEMOGLOBIN 12.2 g/dL (13.3-17.7); LYMPHOCYTES # (AUTO) 1.9 10^3/uL (1.0-4.0); LYMPHOCYTES % (AUTO) 24 % (12-44); MEAN CORPUSCULAR HEMOGLOBIN 31 pg (25-34); MEAN CORPUSCULAR HGB CONC 33 g/dL (32-36); MEAN CORPUSCULAR VOLUME 93 fL (80-99); MEAN PLATELET VOLUME 10.2 fL (9.0-12.2); MONOCYTES # (AUTO) 0.8 10^3/uL (0.0-1.0); MONOCYTES % (AUTO) 10 % (0-12); NEUTROPHILS # (AUTO) 4.4 10^3/uL (1.8-7.8); NEUTROPHILS % (AUTO) 56 % (42-75); PLATELET COUNT 161 10^3/uL (130-400); WHITE BLOOD COUNT 7.9 10^3/uL (4.3-11.0)
[2022-02-23] MEDS ORDERED: METO-352 PO (08:29)
[2022-02-23] MEDS ORDERED: HEParin 1000 UNIT/ML (10ML VIAL) FOR BOLUS ONE (08:37)
[2022-02-23] MEDS ORDERED: NITRO DRIP 25000 MCG/D5W 250 ML IV ONE (08:37)
[2022-02-23] MEDS ORDERED: VERAPAMIL 5 MG/2 ML (CALAN) VIAL IV ONE (08:37)
--- NOTE | 2022-02-23 08:51 | Pre-Op Note & Conscious Sedat ---
Pre-Operative Progress Note H&P Reviewed The H&P was reviewed, patient examined and no changes noted. Date H&P Reviewed: Feb 23, 2022 Time H&P Reviewed: 08:51 Pre-Op Diagnosis: Abnormal nuclear stress test Given the patient's current clinical status, he is considered vulnerable. He h as no history of heart failure. Conscious Sedation Pre-Proced Time 08:51 ASA Score 2 For ASA 3 and 4: Consider anesthesia and medical clearance. Also, for patients with a history of failed moderate sedation consider anesthesia. Airway Lungs Heart ASA score ASA 1: a normal healthy patient ASA 2: a patient with a mild systemic disease (mid diabetes, controlled hypertension, obesity ASA 3: a patient with a severe systemic disease that limits activity (angina, COPD, prior Myocardial infarction) ASA 4: a patient with an incapacitating disease that is a constant threat to life (CHF, renal failure) ASA 5: a moribund patient not expected to survive 24 hrs. (ruptured aneurysm) ASA 6: a declared brain- patient whose organs are being harvested. For emergent operations, add the letter E after the classification Mallampati Classification Grade 2 Sedation Plan Analgesia, Amnesia, Plan communicated to team members, Discussed options with patient/fam, Discussed risks with patient/fam The patient is an appropriate candidate to undergo the planned procedure, sedation, and anesthesia. The patient immediately re-assessed prior to indication. ADAM ROWAN JR, MD Feb 23, 2022 08:51
[2022-02-23] MEDS ORDERED: NS IV 1000 ML 1,000 ML IV SCH (09:30)
--- NOTE | 2022-02-23 09:35 | Cardiac Cath Report ---
CARDIAC CATHETERIZATION DATE OF PROCEDURE: 02/23/2022 INDICATION: Abnormal nuclear stress test and angina pectoris. HISTORY: The patient is a 71 year old male with no previously known history of coronary artery disease. For the past couple of months he has been having exertional chest discomfort. He was evaluated with a nuclear stress test which showed a large inferior ischemic defect. Due to the high risk results on the stress test, he is now referred for further evaluation with a cardiac catheterization. Given his current clinical status, he is considered vulnerable. He has no history of heart failure. PROCEDURES PERFORMED: 1. Left heart catheterization with hemodynamic measurements. 2. Diagnostic lime coronary angiography. PROCEDURE DESCRIPTION: After informed consent and in the fasting state, left heart catheterization was performed through the right radial artery utilizing a 6 Georgian system by percutaneous approach. Standard 5 Georgian following the procedure, a vascular band was applied to the radial artery access site and the sheath was removed with good hemostasis. The aortic pressure was 90/48 mmHg Genoveva catheters were utilized for the diagnostic portion of the procedure. All catheters were exchanged over a guidewire. RESULTS: HEMODYNAMICS: The aortic pressure was 90/48 mmHg. The left ventricular pressure was 100/0 mmHg with a left ventricular end-diastolic pressure of 8 mmHg. There was no significant pressure gradient upon pullback across aortic valve. CORONARY ANGIOGRAPHY: The coronary arteries were calcified, more significantly in the left coronary artery. Left main coronary artery: Free of significant disease. Left anterior descending coronary artery: There was a focal 70% stenosis in the proximal segment followed by long up to 90% stenosis in the distal segment with RUBI-1 flow to the apex. There were [id number] collaterals seen filling the distal right coronary artery. Left circumflex coronary artery: There was a 99% stenosis in the proximal segm ent leading into the first obtuse marginal branch with RUBI-2 flow. There were [id number] collaterals seen filling the distal right coronary artery. Right coronary artery: Dominant and totally occluded in the midsegment with bridging collaterals and [id number] collaterals seen filling the distal vessel with RUBI 0 flow. IMPRESSION: 1. Normal left heart pressures. 2. Severe, calcific three-vessel coronary artery disease as outlined above. This does appear to involve the proximal left anterior descending coronary artery but spares the left main coronary artery. 3. The patient is known to have normal left ventricular systolic function with an estimated ejection fraction of 60-65% by echocardiogram performed on 02/09/2022. Certain portions of this document may have been dictated utilizing voice recognition technology. Inherent to this technology, typographical and grammati lizette errors may exist. As much as I am diligent to identify and correct these mistakes, some errors may remain in the document. ADAM ROWAN JR, MD Feb 23, 2022 09:35
[2022-02-23] MEDS ORDERED: ISOSORBIDE MONONITRATE 30 MG (IMDUR) TAB PO NR (09:45)
[2022-02-23 12:00] VITALS: BP 118/68
[2022-02-23] MEDS ORDERED: ISOS30TA82 PO (15:17)
[2022-02-24] MEDS ORDERED: ISOSORBIDE MONONITRATE 30 MG (IMDUR) TAB PO SCH (09:00)
== END 2022-02-23 15:45 | disposition home or self-care (01) ==
LOC: CATH 07:47 → CSD 09:45 → CATH 15:45
PROVIDERS: ATTEND Internal Medicine Cardiovascular Disease
DX: I25.118 Atherosclerotic heart disease of native coronary artery with other forms of angina pectoris (principal); R94.31 Abnormal electrocardiogram [ECG] [EKG]; E78.2 Mixed hyperlipidemia; J45.909 Unspecified asthma, uncomplicated; Z71.89 Other specified counseling; I12.9 Hypertensive chronic kidney disease with stage 1 through stage 4 chronic kidney disease, or unspecified chronic kidney disease; N18.31 Chronic kidney disease, stage 3a; E66.3 Overweight
CPT/HCPCS: 85025; 87081; 93458; C1894; 36415

== ENCOUNTER 2022-04-26 14:03 | Outpatient (RCR) | payer MEDICARE ==
[~2022-04-26 14:03] MED LIST changes: +ISOS30TA82 PO; +METO-352 PO
== END 2022-04-28 | disposition home or self-care (01) ==
LOC: CR 14:03
PROVIDERS: ATTEND Thoracic Surgery (Cardiothoracic Vascular Surgery)
DX: Z29.8 Encounter for other specified prophylactic measures (principal); Z95.1 Presence of aortocoronary bypass graft
CPT/HCPCS: 93798

== ENCOUNTER 2022-04-28 10:00 | Emergency (ER) | payer MEDICARE ==
[~2022-04-28] VITALS: Ht 175 cm; Wt 80.0 kg
[2022-04-28 10:47] LABS: ALBUMIN 3.9 GM/DL (3.2-4.5); CHLORIDE 108 MMOL/L (98-107); POTASSIUM 4.3 MMOL/L (3.6-5.0); SODIUM 141 MMOL/L (135-145)
[2022-04-28 10:48] LABS: BASOPHILS # (AUTO) 0.1 10^3/uL (0.0-0.1); BASOPHILS % (AUTO) 1 % (0-10); EOSINOPHILS # (AUTO) 0.7 10^3/uL (0.0-0.3); EOSINOPHILS % (AUTO) 11 % (0-10); HEMATOCRIT 35 % (40-54); HEMOGLOBIN 11.5 g/dL (13.3-17.7); LYMPHOCYTES # (AUTO) 1.2 10^3/uL (1.0-4.0); LYMPHOCYTES % (AUTO) 21 % (12-44); MEAN CORPUSCULAR HEMOGLOBIN 31 pg (25-34); MEAN CORPUSCULAR HGB CONC 33 g/dL (32-36); MEAN CORPUSCULAR VOLUME 93 fL (80-99); MEAN PLATELET VOLUME 9.7 fL (9.0-12.2); MONOCYTES # (AUTO) 0.6 10^3/uL (0.0-1.0); MONOCYTES % (AUTO) 9 % (0-12); NEUTROPHILS # (AUTO) 3.3 10^3/uL (1.8-7.8); NEUTROPHILS % (AUTO) 57 % (42-75); PLATELET COUNT 168 10^3/uL (130-400); WHITE BLOOD COUNT 5.9 10^3/uL (4.3-11.0)
[2022-04-28 10:48] LABS: CALCIUM 9.2 MG/DL (8.5-10.1); INR 1.1 (0.8-1.4); PROTHROMBIN TIME PATIENT 14.4 SEC (12.2-14.7)
[2022-04-28 10:50] LABS: GLUCOSE 114 MG/DL (70-105)
[2022-04-28 10:51] LABS: BILIRUBIN,TOTAL 0.5 MG/DL (0.1-1.0); CARBON DIOXIDE 21 MMOL/L (21-32)
[2022-04-28 10:53] LABS: ALKALINE PHOSPHATASE 65 U/L (40-136); CREATININE SERUM 1.03 MG/DL (0.60-1.30); GFR ESTIMATED 77
[2022-04-28 10:54] LABS: BUN/CREATININE RATIO 20
[2022-04-28 10:56] LABS: ALANINE AMINOTRANSFERASE 17 U/L (0-55); MAGNESIUM 1.8 MG/DL (1.6-2.4)
[2022-04-28] MEDS ORDERED: ASPIRIN 81 MG CHEW (CHILDREN'S ASA) PO ONE (11:00)
--- NOTE | 2022-04-28 11:02 | ED Chest Pain ---
General Chief Complaint: Chest Pain Stated Complaint: CHEST PAIN Nursing Triage Note: PT TO RM 8 FROM HAVING A STRESS TEST AT THIS HOSPITAL I N CARDIAC REHAB WITH CC OF UPPER CHEST PAIN, NO OTHER S/S WHEN ASKED. HX OF CABG ON 03/03/22. Source: patient, family Exam Limitations: no limitations History of Present Illness Date Seen by Provider: Apr 28, 2022 Time Seen by Provider: 10:18 Initial Comments Patient is a 71-year-old male who presents to the emergency department from cardiac rehab where he was walking on the treadmill and had an onset of sharp left parasternal chest pain. He had cardiac bypass surgery in early February at in [place]. He states the pain did not radiate. He had no associated shortness of breath, diaphoresis or nausea. He states at the time of my evaluation which is approximately 15 minutes after the onset of pain that his pain is gone. They did give him 1 sublingual nitro before bringing him to the emergency department by wheelchair. He denies any recent illnesses other than some chronic runny nose related to "allergies". No fevers, chills, productive cough. No nausea, vomiting or diarrhea, no symptoms. No swelling in his legs or cramping in his calves. He states prior to his bypass he did not have a heart attack and had no chest pain therefore this pain is not similar to anyth ing he is experienced previously. All other review of systems reviewed and negative except as stated. Timing/Duration: 1/2 hour Severity/Quality: sharp Location: other (Left parasternal) Radiation: no radiation Activities at Onset: other ([place]) Modifying Factors: improves with nitroglycerin (1 sublingual nitroglycerin prior to coming to the emergency) ASA po PLANNING ANALYST: No NTG SL PLANNING ANALYST: Yes Associated Symptoms: denies symptoms Allergies and Home Medications Allergies Coded Allergies: No Known Drug Allergies (Unverified , 01/23/22) Patient Home Medication List Home Medication List Reviewed: Yes Aspirin (Aspirin EC) 81 Mg Tablet., 81 MG PO DAILY, (Reported) Entered as Reported by: BRIE ESCOTO on 01/24/22 1448 Celecoxib (Celecoxib) 200 Mg Capsule, 400 MG PO HS, (Reported) Entered as Reported by: BRIE ESCOTO on 01/24/22 1448 Fluticasone/Salmeterol (Advair Hfa 115-21 Mcg Inhaler) 115 Mcg-21 Mcg/Actuation Hfa.aer.ad, 2 PUFF INH BID PRN for SHORTNESS OF BREATH, (Reported) Entered as Reported by: BRIE ESCOTO on 01/24/22 1449 Isosorbide Mononitrate (Isosorbide Mononitrate ER) 30 Mg Tab.er.24h, 30 MG PO DAILY Prescribed by: ADAM PARSONS JR, MD on 02/23/22 1517 Losartan Potassium (Losartan Potassium) 50 Mg Tablet, 50 MG PO DAILY, (Reported) Entered as Reported by: BRIE SECOTO on 01/24/22 1448 Metoprolol Succinate (Toprol Xl) 50 Mg Tab.er.24h, 50 MG PO DAILY, (Reported) Entered as Reported by: MARY CAROLINA on 02/23/22 0829 Rosuvastatin Calcium (Rosuvastatin Calcium) 20 Mg Tablet, 20 MG PO HS, (Reported) Entered as Reported by: BRIE ESCOTO on 01/24/22 1448 Review of Systems Review of Systems Constitutional: see HPI EENTM: Nose Congestion (Rhinorrhea due to allergies) Respiratory: No Symptoms Reported Cardiovascular: Chest Pain Gastrointestinal: No Symptoms Reported Genitourinary: No Symptoms Reported Musculoskeletal: no symptoms reported Skin: no symptoms reported Psychiatric/Neurological: No Symptoms Reported All Other Systems Reviewed Negative Unless Noted: Yes Past Gsfukig-Ktlfiw-Nluaxe Hx Patient Social History Tobacco Use?: No Substance use?: No Alcohol Use?: No Immunizations Up To Date First/Initial COVID19 Vaccinat: YES Second COVID19 Vaccination Klever: YES Third COVID19 Vaccination Date: YES Past Medical History Surgery/Hospitalization HX: CABG 03/03/22, BACK SURGERIES, KIDNEY STONES, APPENDECTOMY Surgeries: Yes (BACK SURGERY) Appendectomy, Orthopedic, Tonsillectomy Respiratory: No Asthma Currently Using CPAP: No Currently Using BIPAP: No Cardiac: Yes High Cholesterol, Hypertension Neurological: No Genitourinary: Yes (DX 01/23/22) Kidney Stones Gastrointestinal: No Musculoskeletal: Yes Chronic Back Pain Endocrine: No HEENT: No Cancer: No Integumentary: No Blood Disorders: No Physical Exam Vital Signs Vital Signs - First Documented 04/28/22 10:20 Temp 36.6 Pulse 73 Resp 18 B/P (MAP) 131/82 (98) Pulse Ox 98 O2 Delivery Room Air Capillary Refill : Less Than 3 Seconds Height, Weight, BMI Height: '" Weight: lbs. oz. kg; 26.00 BMI Method: General Appearance: No Apparent Distress, WD/WN HEENT: PERRL/EOMI Neck: Normal Inspection Respiratory: Chest Non Tender, Lungs Clear, Normal Breath Sounds, No Accessory Muscle Use, No Respiratory Distress Cardiovascular: Regular Rate, Rhythm, Normal Peripheral Pulses Gastrointestinal: Non Tender, Soft Extremity: Normal Capillary Refill, Normal Inspection, Normal Range of Motion, Non Tender, No Calf Tenderness, No Pedal Edema Neurologic/Psychiatric: Alert, Oriented x3, No Motor/Sensory Deficits, Normal Mood/Affect, local area network systems adminstrator II-XII Norm as Tested Skin: Normal Color, Warm/Dry Progress/Results/Core Measures Results/Orders Lab Results Laboratory Tests Test 04/28/22 10:30 04/28/22 10:43 04/28/22 13:00 Range/Units Prothrombin Time 14.4 12.2-14.7 SEC INR Comment 1.1 0.8-1.4 Activated Partial Thromboplast Time 24 24-35 SEC Sodium Level 141 135-145 MMOL/L Potassium Level 4.3 3.6-5.0 MMOL/L Chloride Level 108 H 98-107 MMOL/L Carbon Dioxide Level 21 21-32 MMOL/L Anion Gap 12 5-14 MMOL/L Blood Urea Nitrogen 21 H 7-18 MG/DL Creatinine 1.03 0.60-1.30 MG/DL Estimat Glomerular Filtration Rate 77 BUN/Creatinine Ratio 20 Glucose Level 114 H 70-105 MG/DL Calcium Level 9.2 8.5-10.1 MG/DL Corrected Calcium 9.3 8.5-10.1 MG/DL Magnesium Level 1.8 1.6-2.4 MG/DL Total Bilirubin 0.5 0.1-1.0 MG/DL Aspartate Amino Transf (AST/SGOT) 22 5-34 U/L Alanine Aminotransferase (ALT/SGPT) 17 0-55 U/L Alkaline Phosphatase 65 40-136 U/L Myoglobin 77.6 10.0-92.0 NG/ML Troponin I < 0.028 < 0.028 <0.028 NG/ML Total Protein 7.0 6.4-8.2 GM/DL Albumin 3.9 3.2-4.5 GM/DL White Blood Count 5.9 4.3-11.0 10^3/uL Red Blood Count 3.75 L 4.30-5.52 10^6/uL Hemoglobin 11.5 L 13.3-17.7 g/dL Hematocrit 35 L 40-54 % Mean Corpuscular Volume 93 80-99 fL Mean Corpuscular Hemoglobin 31 25-34 pg Mean Corpuscular Hemoglobin Concent 33 32-36 g/dL Red Cell Distribution Width 13.1 10.0-14.5 % Platelet Count 168 130-400 10^3/uL Mean Platelet Volume 9.7 9.0-12.2 fL Immature Granulocyte % (Auto) 1 % Neutrophils (%) (Auto) 57 42-75 % Lymphocytes (%) (Auto) 21 12-44 % Monocytes (%) (Auto) 9 0-12 % Eosinophils (%) (Auto) 11 H 0-10 % Basophils (%) (Auto) 1 0-10 % Neutrophils # (Auto) 3.3 1.8-7.8 10^3/uL Lymphocytes # (Auto) 1.2 1.0-4.0 10^3/uL Monocytes # (Auto) 0.6 0.0-1.0 10^3/uL Eosinophils # (Auto) 0.7 H 0.0-0.3 10^3/uL Basophils # (Auto) 0.1 0.0-0.1 10^3/uL Immature Granulocyte # (Auto) 0.0 0.0-0.1 10^3/uL My Orders Orders - SHIN JERNIGAN MD Ekg Tracing (04/28/22 10:19) Cbc With Automated Diff (04/28/22 10:27) Magnesium (04/28/22 10:27) Chest 1 View, Ap/Pa Only (04/28/22 10:27) Comprehensive Metabolic Panel (04/28/22 10:27) Myoglobin Serum (04/28/22 10:27) Protime With Inr (04/28/22 10:27) Partial Thromboplastin Time (04/28/22 10:27) O2 (04/28/22 10:27) Monitor-Rhythm Ecg Trace Only (04/28/22 10:27) Lipid Panel (04/29/22 06:00) Ed Iv/Invasive Line Start (04/28/22 10:27) Troponin I [place] (04/28/22 10:30) Aspirin Chewable Tablet (Baby Aspirin Ch (04/28/22 11:00) Ekg Tracing (04/28/22 10:52) General/Regular (04/28/22 Lunch) Troponin I [place] (04/28/22 13:02) Medications Given in ED Current Medications Medications Dose Ordered Sig/Pardeep Route Start Time Stop Time Status Last Admin Dose Admin Aspirin 324 mg ONCE ONCE PO 04/28/22 11:00 04/28/22 11:01 DC 04/28/22 11:02 324 MG Vital Signs/I&O 04/28/22 10:20 Temp 36.6 Pulse 73 Resp 18 B/P (MAP) 131/82 (98) Pulse Ox 98 O2 Delivery Room Air Blood Pressure Mean: 98 Progress Progress Note #1: Time: 11:41 Progress Note Case discussed with Dr Parsons who is his medical delivery driver. He states that he would be comfortable with a 3 hour troponin. As long as that is negative he can go home with a follow up appointment in 1 week. Patient resting comfortably without pain at the moment. Desires a little food - will order him a tray. Progress Note #2: Time: 13:52 Progress Note Second troponin is also undetectable. Patient has remained asymptomatic since that initial episode of chest pain at a "2" while in the emergency department. I have reassured him that all of his findings are within normal limits and that I discussed his case with Dr. Parsons. [facility] a follow[facility]up [facility] next week. Initial ECG Impression Date: Apr 28, 2022 Initial ECG Impression Time: 10:13 Initial ECG Rate: 68 Initial ECG Rhythm: Normal Sinus Initial ECG Intervals: Normal Initial ECG Impression: Nonspecific Changes Comment Poor R wave progression over the precordium, normal intervals, no ST segment elevation or depression is noted. EKG : EKG Time: 10:44 Rate: 58 Rhythm: Normal Sinus Intervals: Normal ECG Comparisson: Unchanged Comment Pain at a "2", second EKG shows similar findings to the first, no ST segment elevation or depression or ectopy is noted Diagnostic Imaging Diagonstic Imaging: Xray Plain Films/CT/US/NM/MRI: chest Comments [facility] [place] [place] NAME: MARA BRUCE [facility] REC#: [id number] PT STATUS: REG ER : 1950 PHYSICIAN: SHIN JERNIGAN MD ADMIT DATE: 04/28/22/ER Draft Date of Exam:04/28/22 CHEST 1 VIEW, AP/PA ONLY EXAMINATION: Chest 1 view HISTORY: Chest pain COMPARISON: None available. FINDINGS: The lungs are clear without edema or pneumonia. No pleural effusion or pneumothorax. Heart size is normal. Median sternotomy wires are aligned. Left atrial appendage clip is present. IMPRESSION: 1. Clear lungs. Dictated on workstation # [id number] Dict: 04/28/22 1104 Trans: 04/28/22 1105 B[place]NER [id number] Interpreted by: CHAPO JAMISON MD Electronically signed by: Departure Impression Primary Impression: Chest pain Qualified Codes: R07.9 - Chest pain, unspecified Additional Impression: History of four vessel coronary artery bypass graft Disposition: HOME, SELF-CARE Condition: Stable Departure-Patient Inst. Decision time for Depature: 13:53 Referrals: ADAM PARSONS JR, MD SELF, MAXWELL MD (PCP/Family) Primary Care Physician Patient Instructions: Chest Pain That Is Not Caused by the Heart (DC) Add. Discharge Instructions: Continue your daily routine medications as prescribed. If you develop a return of chest pain especially with shortness of breath, na usea, sweating please come back to the emergency room for reevaluation. Please call Dr. Parsons office on Sunday for a follow-up appointment next week. Copy Copies To 1: CLAIRE OLEA MD Copies To 2: ADAM PARSONS JR, MD CORNELIUS, KATHRYN M MD Apr 28, 2022 11:02
--- NOTE | 2022-04-28 11:05 | Diagnostic Imaging Report ---
EXAMINATION: Chest 1 view HISTORY: Chest pain COMPARISON: None available. FINDINGS: The lungs are clear without edema or pneumonia. No pleural effusion or pneumothorax. Heart size is normal. Median sternotomy wires are aligned. Left atrial appendage clip is present. IMPRESSION: 1. Clear lungs. Dictated by: Dictated on workstation # [id number]
[2022-04-28 14:06] VITALS: BP 122/74
== END 2022-04-28 14:10 | disposition home or self-care (01) ==
LOC: EDUNIT# 10:16 → ER 10:18
DX: R07.89 Other chest pain (principal); Z95.1 Presence of aortocoronary bypass graft; Z28.310 Unvaccinated for COVID-19
CPT/HCPCS: 36415; 71045; 80053; 83735; 83874; 84484; 85025; 85610; 85730; 93005; 93041

== ENCOUNTER 2022-05-17 10:10 | Outpatient (RCR) | payer MEDICARE | END 2022-05-29 | disposition home or self-care (01) | LOC: CR 10:10 | PROVIDERS: ATTEND Thoracic Surgery (Cardiothoracic Vascular Surgery) | DX: Z29.8 Encounter for other specified prophylactic measures (principal); Z95.1 Presence of aortocoronary bypass graft | CPT/HCPCS: 93798 ==

== ENCOUNTER 2022-07-20 10:00 | Day surgery (SDC) | payer MEDICARE ==
[~2022-07-20] VITALS: Ht 175.3 cm; Wt 85.7 kg
[2022-07-20] VITALS (8 sets, daily range): BP systolic 137–153; BP diastolic 68–82
[~2022-07-20 10:00] MED LIST changes: +ASPIRIN 81 MG CHEW (CHILDREN'S ASA) PO ONE; +CATHETER FLUSH 10 ML SYR IV PRN; +HEParin (CATH LAB) 2,000 ML IV ONE; +LIDOCAINE 1% INJ 30 ML (XYLOCAINE) VIAL ONE; +MTP25TSR PO; +NS IV 1000 ML 1,000 ML IV ONE; +NS IV 1000 ML 1,000 ML ONE; +RANO10003 PO
--- NOTE | 2022-07-20 10:17 | Pre-Op Note & Conscious Sedat ---
Pre-Operative Progress Note Date H&P Reviewed: Jul 20, 2022 Time H&P Reviewed: 10:17 History & Physical: H&P Reviewed, Patient Examed, No changes noted Pre-Op Diagnosis: Coronary artery disease with angina pectoris Conscious Sedation Pre-Proced ASA Score 2 For ASA 3 and 4: Consider anesthesia and medical clearance. Also, for patients with a history of failed moderate sedation consider anesthesia. Airway Lungs Heart ASA score ASA 1: a normal healthy patient ASA 2: a patient with a mild systemic disease (mid diabetes, controlled hypertension, obesity ASA 3: a patient with a severe systemic disease that limits activity (angina, COPD, prior Myocardial infarction) ASA 4: a patient with an incapacitating disease that is a constant threat to life (CHF, renal failure) ASA 5: a moribund patient not expected to survive 24 hrs. (ruptured aneurysm) ASA 6: a declared brain- patient whose organs are being harvested. For emergent operations, add the letter E after the classification Mallampati Classification Grade 2 Sedation Plan Analgesia, Amnesia, Plan communicated to team members, Discussed options with patient/fam, Discussed risks with patient/fam The patient is an appropriate candidate to undergo the planned procedure, sedation, and anesthesia. The patient immediately re-assessed prior to indication. Given his current clinical status, he is considered mildly frail. He has no history of heart failure. ADAM ROWAN JR, MD Jul 20, 2022 10:17
[2022-07-20] MEDS ORDERED: MIDAZOLAM 5 MG/5 ML (VERSED) VIAL ONE (10:23)
[2022-07-20] MEDS ORDERED: HEParin 1000 UNIT/ML (10ML VIAL) FOR BOLUS ONE (10:23)
[2022-07-20] MEDS ORDERED: VERAPAMIL 5 MG/2 ML (CALAN) VIAL IV ONE (10:23)
[2022-07-20] MEDS ORDERED: NITRO DRIP 25000 MCG/D5W 250 ML IV ONE (10:23)
[2022-07-20] MEDS ORDERED: fentaNYL INJ 100 MCG/2 ML AMP ONE (10:23)
[2022-07-20] MEDS ORDERED: NS IV 1000 ML 1,000 ML ONE (11:28)
[2022-07-20] MEDS ORDERED: CLOPIDOGREL 300 MG (PLAVIX) TABLET PO ONE (11:54)
--- NOTE | 2022-07-20 12:13 | Cardiac Cath Report ---
CARDIAC CATHETERIZATION DATE OF PROCEDURE: 07/20/2022 INDICATION: Coronary artery disease of makah vessel with angina pectoris. HISTORY: The patient is a 71 year old male with a known history of coronary artery disease who underwent coronary artery bypass surgery on 03/03/2022 with a left internal mammary artery graft to the left anterior descending coronary artery, a saphenous vein graft to the posterior descending coronary artery and a sequential saphenous vein graft to an obtuse marginal branch and ramus intermedius branch. Despite having had bypass surgery, he has been having ongoing angina. He has been on 2 antianginal medications but still has chest discomfort consistent with angina. He has known to have disease in the proximal left anterior descending coronary artery and distal left anterior coronary artery with both lesions proximal to the touchdown of the left internal mammary artery graft. This leaves this proximal to mid left anterior descending coronary artery territory susceptible to ischemia. As such, he is now referred for further evaluation with a cardiac catheterization. Given his current clinical status, he is considered mildly frail. He has no history of heart failure. PROCEDURES PERFORMED: 1. Left heart catheterization with hemodynamic measurements. 2. Diagnostic makah coronary angiography. 3. Diagnostic bypass graft angiography. 4. Flow measurements of proximal left anterior descending coronary artery (iFR). 5. Drug-eluting stent placement to proximal left anterior descending coronary artery. PROCEDURE DESCRIPTION: After informed consent and in the fasting state, left heart catheterization was performed through the left radial artery utilizing a 6 [place]an system by percutaneous approach. Standard 5 [place]an Genoveva catheters as well as a 5 [place]an RCB, a 5 [place] LCB, and a 5 [place] ATUL catheter were utilized for the diagnostic portion of the procedure. A 6 [place]an CLS 3.5 guide catheter was utilized for the percutaneous intervention. All catheters were exchanged over a guidewire. Following the procedure, a vascular band was applied to the radial artery access site and the sheath was removed with good hemostasis. RESULTS: HEMODYNAMICS: The aortic pressure was 87/45 mmHg. The left ventricular pressure was 83/0 mmHg with a left ventricular end-diastolic pressure of 2 mmHg. There was no significant pressure gradient upon pullback across the aortic valve. CORONARY ANGIOGRAPHY: Left main coronary artery: Free of significant disease. Left anterior descending coronary artery: There was a hazy 70% stenosis in the proximal segment followed by a long up to 90% stenosis distally with RUBI-1 flow distally and evidence of competitive flow from the bypass graft. Left circumflex coronary artery: There was an 80% stenosis and then midportion of the vessel followed by a 90% stenosis in the proximal segment of the first obtuse marginal branch with RUBI-2 flow. Ramus intermedius branch: There was a ramus intermedius branch which contained a 90% stenosis in its midportion with RUBI-1 flow beyond the stenosis. Right coronary artery: Dominant and totally occluded in the midsegment with faint right to right collaterals seen filling the distal vessel. BYPASS GRAFT ANGIOGRAPHY: Left internal mammary artery graft to left anterior descending coronary artery: Widely patent with good distal runoff. Saphenous vein graft to posterior descending artery: Widely patent with good distal runoff. Saphenous vein graft to ramus intermedius and obtuse marginal branch: This is a jump graft. It appears as though this only supplies the ramus intermedius branch and the jump portion of the graft to the obtuse marginal branch may be closed. There was a 90% stenosis in the ramus intermedius branch right at the anastomotic site with RUBI-1 flow. INSTANTANEOUS FREE WAVE RATIO: iFR was conducted on the proximal left anterior descending coronary artery once the system was normalized. The lesion was successfully crossed with a [employer] iFR wire. The iFR was 0.89. This is considered hemodynamically significant and therefore, we proceeded with intervention. PERCUTANEOUS CORONARY INTERVENTION: Following the iFR of the proximal left anterior descending coronary artery, percutaneous coronary intervention was carried out over the iFR wire. Coronary angioplasty was performed with a 2.5 x 12 mm Trek balloon at a pressure of 12 torsten. I subsequently deployed a 3 x 15 mm drug-eluting Xience Skypoint stent at a pressure of 18 torsten. Following stent placement, there was 0% residual stenosis with RUBI-3 flow. IMPRESSION: 1. Normal central aortic pressure with low left ventricular end-diastolic pressure. 2. Severe makah three-vessel coronary artery disease as outlined above. 3. Patent left internal mammary artery graft to distal left anterior descending coronary artery. 4. Patent saphenous vein graft to posterior descending artery. 5. Patent saphenous vein graft to ramus intermedius branch but the jump portion of the graft to the obtuse marginal branch appears to have become occluded. Furthermore, there was a 90% stenosis in the ramus intermedius branch right at the touchdown of the graft. 6. iFR of the lesion in the proximal left anterior descending coronary artery was hemodynamically significant at 0.89. 7. Status post drug-eluting stent placement to the proximal left anterior descending coronary artery with a 3 x 15 mm Xience Skypoint stent with 0% residual stenosis and RUBI-3 flow. 8. The patient may need additional intervention on the makah left circumflex coronary artery and ramus intermedius branch if he still has angina following the stent to the left anterior descending coronary artery. 9. The patient is known to have normal left ventricular systolic function with an estimated ejection fraction of 60-65% by echocardiogram that was performed on 02/09/2022. Certain portions of this document may have been dictated utilizing voice recognition technology. Inherent to this technology, typographical and grammatical errors may exist. As much as I am diligent to identify and correct these mistakes, some errors may remain in the document. ADAM ROWAN JR, MD Jul 20, 2022 12:13
[2022-07-20] MEDS ORDERED: NS IV 1000 ML 1,000 ML IV SCH (12:15)
[2022-07-20] MEDS ORDERED: CLOP75TA28 PO (13:41)
[2022-07-21] MEDS ORDERED: CLOPIDOGREL 75 MG (PLAVIX) TABLET PO SCH (09:00)
== END 2022-07-20 16:03 | disposition home or self-care (01) ==
LOC: CATH 10:00 → CSD 12:51 → CATH 16:03
PROVIDERS: ATTEND Internal Medicine Cardiovascular Disease
DX: I25.119 Atherosclerotic heart disease of native coronary artery with unspecified angina pectoris (principal); Z79.82 Long term (current) use of aspirin; E78.2 Mixed hyperlipidemia; I12.9 Hypertensive chronic kidney disease with stage 1 through stage 4 chronic kidney disease, or unspecified chronic kidney disease; N18.31 Chronic kidney disease, stage 3a; J45.909 Unspecified asthma, uncomplicated; E66.3 Overweight; Z68.27 Body mass index [BMI] 27.0-27.9, adult; Z79.899 Other long term (current) drug therapy
CPT/HCPCS: 87081; 93459; 93571; C1725; C1769; C1874; C1887; C1894; C9600

== ENCOUNTER → 2022-07-31 | Outpatient (CLI) | payer MEDICARE ==
[~2022-07-31] MED LIST changes: -ASPIRIN 81 MG CHEW (CHILDREN'S ASA) PO ONE; -CATHETER FLUSH 10 ML SYR IV PRN; +CLOP75TA28 PO; -HEParin (CATH LAB) 2,000 ML IV ONE; -LIDOCAINE 1% INJ 30 ML (XYLOCAINE) VIAL ONE; -NS IV 1000 ML 1,000 ML IV ONE; -NS IV 1000 ML 1,000 ML ONE
[2022-07-31 10:20] LABS: BASOPHILS # (AUTO) 0.1 10^3/uL (0.0-0.1); BASOPHILS % (AUTO) 1 % (0-10); EOSINOPHILS # (AUTO) 0.6 10^3/uL (0.0-0.3); EOSINOPHILS % (AUTO) 8 % (0-10); HEMATOCRIT 39 % (40-54); HEMOGLOBIN 13.2 g/dL (13.3-17.7); LYMPHOCYTES # (AUTO) 1.7 10^3/uL (1.0-4.0); LYMPHOCYTES % (AUTO) 24 % (12-44); MEAN CORPUSCULAR HEMOGLOBIN 31 pg (25-34); MEAN CORPUSCULAR HGB CONC 34 g/dL (32-36); MEAN CORPUSCULAR VOLUME 91 fL (80-99); MEAN PLATELET VOLUME 10.3 fL (9.0-12.2); MONOCYTES # (AUTO) 0.7 10^3/uL (0.0-1.0); MONOCYTES % (AUTO) 10 % (0-12); NEUTROPHILS # (AUTO) 3.8 10^3/uL (1.8-7.8); NEUTROPHILS % (AUTO) 56 % (42-75); PLATELET COUNT 216 10^3/uL (130-400); WHITE BLOOD COUNT 6.8 10^3/uL (4.3-11.0)
[2022-07-31 11:05] LABS: CALCIUM 9.7 MG/DL (8.5-10.1); CREATININE SERUM 1.2 MG/DL (0.60-1.30); INR 0.9 (0.8-1.4)
== END ==
LOC: LAB FS 08:20
PROVIDERS: ATTEND Internal Medicine Cardiovascular Disease
DX: I25.118 Atherosclerotic heart disease of native coronary artery with other forms of angina pectoris (principal)
CPT/HCPCS: 36415; 80048; 85025; 85610

== ENCOUNTER → 2022-08-01 | Outpatient (CLI) | payer MEDICARE ==
[~2022-08-01] MED LIST changes: +CATHETER FLUSH 10 ML SYR IV PRN; +IOHEXOL 350 MG/ML 100 ML (OMNIPAQUE 350) VIAL IV ONE; +METO-333 PO; +NITR0.4T42 SL; +NITROGLYCERIN 0.4 MG SL TABS BTL 25'S SL ONE; +NS 100 ML (IVPB) BAG IV ONE; +meTOprolol 5 MG/5 ML (LOPRESSOR) VIAL IV PRN
--- NOTE | 2022-08-02 15:45 | Diagnostic Imaging Report ---
EXAMINATION: CTA of the coronary arteries. TECHNIQUE: Contrast enhanced thin section helical images were obtained through the heart and coronary arteries with intravenous contrast timed for the optimal opacification of the coronary arterial structures per gated CTA protocol. Post-processing, reconstructions and interpretation of angiographic images of the vessels was performed. 3D MIP reconstructions were performed and reviewed. All CT scans use one or more of the following dose optimizing techniques: automated exposure control, MA and/or KvP adjustment based on a patient size and exam type, or iterative reconstruction. HISTORY: Coronary artery disease COMPARISON: None available. FINDINGS: There is severe stenosis of the mid right coronary artery with total occlusion of the distal right coronary artery. Posterior descending artery is not included in the [id number]. A patent graft is present from the ascending aorta extending below the field of view presumably extending to the posterior descending artery. Left main coronary artery is normal. There is moderate stenosis of the origin of the left anterior descending artery. There is a stent in the mid left anterior descending artery. There is a severe stenosis distal to the stent. There is a left internal mammary artery to left anterior descending artery bypass graft. Bypass is patent without stenosis. The first diagonal is occluded but reconstituted by a patent vein graft from the ascending aorta. There is moderate stenosis of the mid circumflex artery. There is no anomalous coronary artery origin or course. There is no myocardial bridging. There is no ventricular dilation or hypertrophy. Both atria are normal in size. Aorta is normal in caliber. There is a left atrial appendage clip. There is no edema or pneumonia. No pleural effusion. No pneumothorax. No suspicious nodules. No pericardial effusion. There is no mediastinal lymphadenopathy. There are no suspicious osseus lesions. IMPRESSION: 1. Occluded right distal coronary artery with a patent graft extending from the ascending aorta to below the field of view. The posterior descending artery is not included within the [id number]. 2. Severe stenosis of the mid left anterior descending artery with patent left internal mammary artery to left anterior descending artery bypass. 3. Occluded first diagonal with reconstitution via a patent vein graft from the ascending aorta. 4. Moderate stenosis of the mid circumflex artery. Dictated by: Dictated on workstation # [id number]
== END ==
LOC: RAD 09:45
PROVIDERS: ATTEND Internal Medicine Cardiovascular Disease
DX: I25.118 Atherosclerotic heart disease of native coronary artery with other forms of angina pectoris (principal); I70.8 Atherosclerosis of other arteries
CPT/HCPCS: 75574

== ENCOUNTER 2022-08-03 09:00 | Day surgery (SDC) | payer MEDICARE ==
[~2022-08-03] VITALS: Ht 175.3 cm; Wt 84.8 kg
[2022-08-03 08:14] VITALS: BP 150/87
[~2022-08-03 09:00] MED LIST changes: +ASPIRIN 81 MG CHEW (CHILDREN'S ASA) PO ONE; +HEParin (CATH LAB) 2,000 ML IV ONE; +HEParin 1000 UNIT/ML (10ML VIAL) FOR BOLUS ONE; -IOHEXOL 350 MG/ML 100 ML (OMNIPAQUE 350) VIAL IV ONE; +LIDOCAINE 1% INJ 30 ML (XYLOCAINE) VIAL ONE; +MIDAZOLAM 5 MG/5 ML (VERSED) VIAL ONE; +NITRO DRIP 25000 MCG/D5W 250 ML IV ONE; -NITROGLYCERIN 0.4 MG SL TABS BTL 25'S SL ONE; -NS 100 ML (IVPB) BAG IV ONE; +NS IV 1000 ML 1,000 ML IV ONE; +NS IV 1000 ML 1,000 ML ONE; +VERAPAMIL 5 MG/2 ML (CALAN) VIAL IV ONE; +fentaNYL INJ 100 MCG/2 ML AMP ONE; -meTOprolol 5 MG/5 ML (LOPRESSOR) VIAL IV PRN
[2022-08-03 09:17] LABS: CALCIUM 9.1 MG/DL (8.5-10.1); CREATININE SERUM 1.19 MG/DL (0.60-1.30)
[2022-08-03] MEDS ORDERED: NS (IVPB) 0 ML ONE (09:26)
[2022-08-03] MEDS ORDERED: ADENOSINE 6 MG/2 ML (ADENOCARD) VIAL IV ONE (09:26)
[2022-08-03] MEDS ORDERED: NS IV 1000 ML 1,000 ML ONE (09:28)
--- NOTE | 2022-08-03 09:41 | Pre-Op Note & Conscious Sedat ---
Pre-Operative Progress Note Date H&P Reviewed: Aug 03, 2022 Time H&P Reviewed: 09:40 History & Physical: H&P Reviewed, Patient Examed, No changes noted Pre-Op Diagnosis: Coronary artery disease with angina Conscious Sedation Pre-Proced ASA Score 2 For ASA 3 and 4: Consider anesthesia and medical clearance. Also, for patients with a history of failed moderate sedation consider anesthesia. Airway Lungs Heart ASA score ASA 1: a normal healthy patient ASA 2: a patient with a mild systemic disease (mid diabetes, controlled hypertension, obesity ASA 3: a patient with a severe systemic disease that limits activity (angina, COPD, prior Myocardial infarction) ASA 4: a patient with an incapacitating disease that is a constant threat to life (CHF, renal failure) ASA 5: a moribund patient not expected to survive 24 hrs. (ruptured aneurysm) ASA 6: a declared brain- patient whose organs are being harvested. For emergent operations, add the letter E after the classification Mallampati Classification Grade 2 Sedation Plan Analgesia, Amnesia, Plan communicated to team members, Discussed options with patient/fam, Discussed risks with patient/fam The patient is an appropriate candidate to undergo the planned procedure, sedation, and anesthesia. The patient immediately re-assessed prior to indication. Given his current clinical status, he is considered mildly frail. He has no history of heart failure. ADAM ROWAN JR, MD Aug 03, 2022 09:41
[2022-08-03] MEDS ORDERED: CLOPIDOGREL 75 MG (PLAVIX) TABLET ONE (10:20)
[2022-08-03] MEDS ORDERED: fentaNYL INJ 100 MCG/2 ML AMP ONE (11:30)
[2022-08-03] MEDS ORDERED: MIDAZOLAM 2 MG/2 ML (VERSED) VIAL ONE (11:56)
[2022-08-03] MEDS ORDERED: NS IV 1000 ML 1,000 ML IV SCH (12:45)
[2022-08-03] MEDS ORDERED: ADVAIR HFA 115/21 MCG INHALER 8 GM IH PRN (12:45)
[2022-08-03] MEDS ORDERED: NITROGLYCERIN 0.4 MG SL TABS BTL 25'S SL PRN (12:45)
[2022-08-03] MEDS ORDERED: ANTACID SUSP 30 ML UDC (MYLANTA) PO PRN (13:00)
[2022-08-03] MEDS ORDERED: ZOLPIDEM 5 MG (AMBIEN) TAB PO PRN (13:00)
[2022-08-03] MEDS ORDERED: ACETAMINOPHEN 325 MG TABLET PO PRN (13:00)
--- NOTE | 2022-08-03 13:23 | Cardiac Cath Report ---
CARDIAC CATHETERIZATION DATE OF PROCEDURE: 08/03/2022 INDICATION: Coronary artery disease with angina pectoris. HISTORY: The patient is a 71 year old male with known three-vessel coronary artery disease with previous coronary artery bypass surgery x4 with a left internal mammary artery graft to the left anterior descending coronary artery, a saphenous vein graft to the right coronary artery and a sequential saphenous vein graft to a ramus intermedius and obtuse marginal branches. He had a recent stent placed to the mid segment of the left anterior descending coronary artery due to proximal stenosis that was not supplied by the distal bypass graft. His angina initially improved after this stent but within a few days, his angina rec urred. I then had him undergo a coronary CT angiogram that demonstrated the sequential vein graft to the ramus intermedius and obtuse marginal branches only supplied the ramus intermedius branch and the distal limb of this bypass appears occluded. As such, he is now here for intervention on the [place] left circumflex coronary artery. Given his current clinical status, he is considered mildly frail. He has no history of heart failure. PROCEDURES PERFORMED: 1. Percutaneous coronary intervention to chronic total occlusion of the midportion of the left circumflex coronary artery. PROCEDURE DESCRIPTION: After informed consent and in the fasting state, left heart catheterization was performed through the right radial artery utilizing a 6 Mauritian system by percutaneous approach. A 6 Mauritian CLS 3.5 guide catheter was utilized for the procedure. At 1 point, I had to exchange for a new CLS 3.5 guide catheter because the first 1 was becoming too soft and was not providing adequate support. All catheters were exchanged over a guidewire. RESULTS: HEMODYNAMICS: The aortic pressure was 106/60 mmHg. The aortic valve was not crossed. CORONARY ANGIOGRAPHY: The left coronary artery was the only vessel studied. Left main coronary artery: Free of significant disease. Left anterior descending coronary artery: There was a stent in the proximal segment which was widely patent. There was a long up to 90% stenosis distally with RUBI-1 flow distally and evidence of competitive flow from the bypass graft. Left circumflex coronary artery: There was a 99% stenosis in the midportion of the vessel followed by a 90% stenosis in the proximal segment of the first obtuse marginal branch with RUBI-2 flow. Ramus intermedius branch: There was a ramus intermedius branch which contained a 90% stenosis in its midportion with RUBI-1 flow beyond the stenosis. PERCUTANEOUS CORONARY INTERVENTION: Percutaneous coronary intervention was carried out on the left circumflex coronary artery through a 6 Mauritian CLS 3.5 guide catheter. I initially attempted to cross the stenosis with a [place] guidewire but this would not pass through the stenosis. It was at that time t hat I determined this was a chronic total occlusion. I then changed over to a long Whisper extra-support guidewire and was able to cross this through the chronic total occlusion. I then attempted to pass a 1.5 x 12 mm Trek balloon through the area but this would not pass. I then exchanged for a 1.2 x 8 mm [place]ail Mini-Trek balloon and performed angioplasty at a pressure up to 12 torsten for multiple inflations. I then attempted to advance a Mini-cross catheter through the area but this would not pass. I then performed angioplasty with a 1.2 x 12 mm Mini-Trek balloon at a pressure up to 14 torsten at which point the balloon burst. I again tried to advance the crossing catheter but this still would not pass. Around this time, the guidewire prolapsed and I could not reengage the guide catheter. The guide catheter was removed over a wire and a new CLS 3.5 guide catheter was advanced over the wire. I recross the lesion with a Whisper medium support guidewire. I then performed coronary angioplasty with a 2 x 6 mm [place] cutting balloon at a pressure up to 6 torsten for several inflations because I could not quite get this through the lesion. I then performed coronary angioplasty with 1.5 x 8 mm Mini-Trek balloon at a pressure up to 14 torsten but I can also not advance this through the lesion. My ultimate goal was to be able to perform coronary atherectomy with a Rotablator system but since I could not get an exchange catheter through the lesion, I could not get a Rotablator wire through the lesion. At that point in time, the procedure was concluded. Following coronary angioplasty, there was 80% residual stenosis with RUBI-2 flow. No stent was placed. IMPRESSION: 1. Normal central aortic pressure. 2. Patent stent in the proximal left anterior descending coronary artery. 3. Status post balloon angioplasty to the midportion of the left circumflex coronary artery for a chronic total of occlusion with 80% residual stenosis and RBUI-2 flow. No stent was placed. I planned to perform Rotablator atherectomy but since I could not get large enough equipment through the residual stenosis to exchange for a Rotablator guidewire, the atherectomy could not be performed. 4. The patient was previously known to have a patent left internal mammary graft to the left anterior descending coronary artery, a patent saphenous vein graft to the right coronary artery, and a patent saphenous vein graft to the to us intermedius branch but this was a jump graft and the distal segment of the jump over to the obtuse marginal branch is occluded. 5. The patient is known to have normal left ventricular systolic function with an estimated ejection fraction of 60-65% by echocardiogram performed on 02/09/2022. Certain portions of this document may have been dictated utilizing voice recognition technology. Inherent to this technology, typographical and grammatical errors may exist. As much as I am diligent to identify and correct these mistakes, some errors may remain in the document. ADAM ROWAN JR, MD Aug 03, 2022 13:23
[2022-08-03 16:00] VITALS: BP 113/72
[2022-08-03 20:00] VITALS: BP 118/65
[2022-08-03] MEDS: RT--FLUTICASONE/SALMETEROL 113-14 (AIRDUO RespiCLICK) IH PRN (20:55)
[2022-08-03] MEDS ORDERED: CELECOXIB 100 MG (CeleBREX) CAP PO SCH (21:00)
[2022-08-03] MEDS ORDERED: meTOprolol TARTRATE 25 MG (LOPRESSOR) TABLET PO SCH (21:00)
[2022-08-03] MEDS ORDERED: NON-FORMULARY MEDICATION 1 EA EA (Ranolazine (Ranexa) 1,000 MG) PO SCH (21:00)
[2022-08-03] MEDS ORDERED: ROSUVASTATIN 20 MG (CRESTOR) TABLET PO SCH (21:00)
[2022-08-03] MEDS ORDERED: CELECOXIB 400 MG PO SCH (21:00)
[2022-08-03] MEDS ORDERED: RANOLAZINE ER 500 MG TAB (RANEXA) PO SCH (21:00)
[2022-08-04] VITALS: BP 108/60
[2022-08-04 05:42] LABS: BASOPHILS % (AUTO) 1 % (0-10); EOSINOPHILS # (AUTO) 0.3 10^3/uL (0.0-0.3); EOSINOPHILS % (AUTO) 7 % (0-10); HEMATOCRIT 32 % (40-54); HEMOGLOBIN 10.7 g/dL (13.3-17.7); LYMPHOCYTES # (AUTO) 1.1 10^3/uL (1.0-4.0); LYMPHOCYTES % (AUTO) 22 % (12-44); MEAN CORPUSCULAR HEMOGLOBIN 31 pg (25-34); MEAN CORPUSCULAR HGB CONC 34 g/dL (32-36); MEAN CORPUSCULAR VOLUME 93 fL (80-99); MEAN PLATELET VOLUME 9.8 fL (9.0-12.2); MONOCYTES # (AUTO) 0.5 10^3/uL (0.0-1.0); MONOCYTES % (AUTO) 10 % (0-12); NEUTROPHILS % (AUTO) 60 % (42-75); PLATELET COUNT 158 10^3/uL (130-400)
[2022-08-04 06:12] LABS: CALCIUM 8.6 MG/DL (8.5-10.1); CREATININE SERUM 1.1 MG/DL (0.60-1.30); POTASSIUM 4.2 MMOL/L (3.6-5.0)
[2022-08-04 08:00] VITALS: BP 132/75
[2022-08-04] MEDS: RT--FLUTICASONE/SALMETEROL 113-14 (AIRDUO RespiCLICK) IH PRN (08:25)
--- NOTE | 2022-08-04 08:58 | Discharge Summary ---
Diagnosis/Chief Complaint Date of Admission 08/03/22 Date of Discharge 08/04/22 Discharge Date: Aug 04, 2022 Discharge Time: 09:00 Admission Diagnosis Admission Diagnosis Coronary artery disease with angina pectoris Discharge Diagnosis 1. Coronary artery disease with angina pectoris. 2. Primary hypertension. 3. Mixed hyperlipidemia. 4. Chronic kidney disease, stage IIIa. 5. Anemia, likely dilutional due to intravenous fluids and intra-arterial contrast administered during the procedure during this admission. 6. Asthma. 7. Overweight. Reason Hospital Visit Outpatient cardiac catheterization. Discharge Summary Hospital Course Was the Problem List Reviewed?: Yes Hospital Course The patient presented for an outpatient cardiac catheterization and percutaneous coronary intervention. He underwent angioplasty to a chronic total occlusion of the left circumflex coronary artery but I was not able to fully open the vessel or place a stent. He was doing well the day following the procedure but was still having some anginal quality chest discomfort off and on. I will likely plan to refer him to [facility] in [place], [place] for complex intervention to the left circumflex coronary artery and possibly vein graft to the ramus intermedius branch. Labs Laboratory Tests 08/03/22 08:32: Chloride Level 108H, Blood Urea Nitrogen 20H 08/04/22 05:18: Blood Urea Nitrogen 20H, Red Blood Count 3.45L, Hemoglobin 10.7L, Hematocrit 32L Procedures Percutaneous coronary intervention Discharge Physical Examination Allergies: Coded Allergies: No Known Drug Allergies (Unverified , 01/23/22) Vitals & I&Os Vital Signs Date Time Temp Pulse Resp B/P (MAP) Pulse Ox O2 Delivery O2 Flow Rate FiO2 08/04/22 08:25 94 Room Air 0.00 08/04/22 08:00 36.6 59 8 132/75 (94) General Appearance: Alert, Oriented X3, Cooperative, No Acute Distress HEENT: Atraumatic, Mucous Memb Moist/[place] Respiratory: Clear to Auscultation, Normal Air Movement Cardiovascular: Regular Rate, Normal S1, Normal S2, No Murmurs Abdominal: Normal Bowel Sounds, Soft Extremities: No Clubbing, No Cyanosis, No Edema, Normal Pulses Skin: No Rashes, No Breakdown, No Significant Lesion Neuro: Normal Speech, Strength at 5/5 X4 Ext, Cranial Nerves 3-12 NL Psych/Mental Status: Mental Status NL, Mood NL Discharge Home Medications Reviewed and agree with Discharge Medication list on patient's Discharge Instruction sheet Instructions to Patient/Family Please see electronic discharge instructions given to patient. Clinical Quality Measures End of Life/Advance Care Plan: Advance Care discuss with: patient Plan: initiate discussion, clarifying prognosis Admission Status Admission Status: Other (Outpt Proc) AMI/AHF: Ejection Fraction: Normal LVSF D/C Inst. for HF given: No ASA Given prior to admit: Yes ASA po Prior to arrival: Yes DVT/VTE Risk/Contraindication: VTE Addressed: Yes VTE Present on Admission: No RFS Level Per Nursing on Admit: 1=Low/No VTE PPX ADAM ROWAN JR, MD Aug 04, 2022 08:58
[2022-08-04] MEDS ORDERED: ASPIRIN E.C. 81 MG (ECOTRIN) TAB PO SCH (09:00)
[2022-08-04] MEDS ORDERED: CLOPIDOGREL 75 MG (PLAVIX) TABLET PO SCH (09:00)
== END 2022-08-04 09:25 | disposition home or self-care (01) ==
LOC: CATH 09:00 → CSD 12:50 → CATH 08-04 09:25
PROVIDERS: ATTEND Internal Medicine Cardiovascular Disease
DX: I25.119 Atherosclerotic heart disease of native coronary artery with unspecified angina pectoris (principal); I25.82 Chronic total occlusion of coronary artery; I12.9 Hypertensive chronic kidney disease with stage 1 through stage 4 chronic kidney disease, or unspecified chronic kidney disease; E78.2 Mixed hyperlipidemia; N18.30 Chronic kidney disease, stage 3 unspecified; D64.9 Anemia, unspecified; J45.909 Unspecified asthma, uncomplicated; E66.3 Overweight; Z68.27 Body mass index [BMI] 27.0-27.9, adult; Z95.5 Presence of coronary angioplasty implant and graft
CPT/HCPCS: 80048 ×2; 85025; 87081; 92943; 93005 ×2; 94640 ×2; C1725 ×6; C1769 ×2; C1887 ×3; C1894; 36415

== ENCOUNTER → 2022-08-15 | Outpatient (CLI) | payer MEDICARE ==
[~2022-08-15] MED LIST changes: -ASPIRIN 81 MG CHEW (CHILDREN'S ASA) PO ONE; -CATHETER FLUSH 10 ML SYR IV PRN; -HEParin (CATH LAB) 2,000 ML IV ONE; -HEParin 1000 UNIT/ML (10ML VIAL) FOR BOLUS ONE; -LIDOCAINE 1% INJ 30 ML (XYLOCAINE) VIAL ONE; -MIDAZOLAM 5 MG/5 ML (VERSED) VIAL ONE; -NITRO DRIP 25000 MCG/D5W 250 ML IV ONE; -NS IV 1000 ML 1,000 ML IV ONE; -NS IV 1000 ML 1,000 ML ONE; -VERAPAMIL 5 MG/2 ML (CALAN) VIAL IV ONE; -fentaNYL INJ 100 MCG/2 ML AMP ONE
== END ==
LOC: LAB FS 07:47
PROVIDERS: ATTEND Internal Medicine Interventional Cardiology
DX: Z01.812 Encounter for preprocedural laboratory examination (principal); I25.118 Atherosclerotic heart disease of native coronary artery with other forms of angina pectoris; I10 Essential (primary) hypertension; Z95.1 Presence of aortocoronary bypass graft; Z20.822 Contact with and (suspected) exposure to COVID-19
CPT/HCPCS: 87636

== ENCOUNTER → 2022-08-15 | Outpatient (CLI) | payer MEDICARE | LOC: CARDFS 09:44 | PROVIDERS: ATTEND Internal Medicine Cardiovascular Disease | DX: I08.0 Rheumatic disorders of both mitral and aortic valves (principal); I25.118 Atherosclerotic heart disease of native coronary artery with other forms of angina pectoris | CPT/HCPCS: 93306 ==

== ENCOUNTER → 2022-08-18 | Outpatient (CLI) | payer MEDICARE | LOC: LAB FS 10:07 | PROVIDERS: ATTEND Internal Medicine Interventional Cardiology | DX: Z01.812 Encounter for preprocedural laboratory examination (principal); Z20.822 Contact with and (suspected) exposure to COVID-19 | CPT/HCPCS: 87636 ==

== ENCOUNTER 2022-08-28 10:40 | Emergency (ER) | payer MEDICARE ==
[2022-08-28] MEDS ORDERED: FAMOTIDINE 20 MG (PEPCID) TABLET PO STA (10:58)
[2022-08-28] MEDS ORDERED: ASPIRIN 81 MG CHEW (CHILDREN'S ASA) PO ONE (11:00)
[2022-08-28] MEDS ORDERED: LIDOCAINE 2% VISCOUS 15 ML UDC PO ONE (11:00)
[2022-08-28] MEDS ORDERED: NITROGLYCERIN 2% OINT 1 GM UNIT DOSE PACKET TOP ONE (11:00)
[2022-08-28] MEDS ORDERED: ANTACID SUSP 30 ML UDC (MYLANTA) PO ONE (11:00)
--- NOTE | 2022-08-28 11:01 | ED Chest Pain ---
General Chief Complaint: Chest Pain Stated Complaint: CHEST PAIN Source: patient Exam Limitations: no limitations History of Present Illness Date Seen by Provider: Aug 28, 2022 Time Seen by Provider: 10:44 Initial Comments 71-year-old male with past medical history most notable for CAD status post CABG and stenting coming in due to chest pain. He had a cardiac catheterization a week ago at [facility] with stents placed. Chest pain started really again Sunday, has been constant since then with throbbing and some sharp nature to it. Feels similar to the same chest pain he has been having for months now which has been nonstop. Denies any prior history of DVT or PE. Takes aspirin and Plavix daily, but does not take any other type of blood thinner. He called his doctor and they recommended him getting checked out in the ER and sending them the results. Otherwise denying any other acute complaints including any fever, chills, weakness, numbness, shortness of breath, cough, rash, or any other concerns. Allergies and Home Medications Allergies Coded Allergies: No Known Drug Allergies (Unverified , 01/23/22) Patient Home Medication List Home Medication List Reviewed: Yes Aspirin (Aspirin EC) 81 Mg Tablet.dr, 81 MG PO DAILY, (Reported) Entered as Reported by: BRIE ESCOTO on 01/24/22 1448 Celecoxib (Celecoxib) 200 Mg Capsule, 400 MG PO HS, (Reported) Entered as Reported by: BRIE ESCOTO on 01/24/22 1448 Clopidogrel Bisulfate (Clopidogrel) 75 Mg Tablet, 75 MG PO DAILY Prescribed by: ADAM ROWAN JR, MD on 07/20/22 1341 Fluticasone/Salmeterol (Advair Hfa 115-21 Mcg Inhaler) 115 Mcg-21 Mcg/Actuation Hfa.aer.ad, 2 PUFF INH BID PRN for SHORTNESS OF BREATH, (Reported) Entered as Reported by: BRIE ESCOTO on 01/24/22 1449 Metoprolol Tartrate (Metoprolol Tartrate) 25 Mg Tablet, 25 MG PO BID, (Reported) Entered as Reported by: MARY CAROLINA on 08/03/22 0827 Nitroglycerin (Nitroglycerin) 0.4 Mg Tab.subl, 0.4 MG SL PRN, (Reported) Entered as Reported by: MARY CAROLINA on 08/03/22 0827 Ranolazine (Ranexa) 1,000 Mg Tab.er.12h, 1,000 MG PO BID, (Reported) Entered as Reported by: ARAM MONTAÑO on 07/20/22 0925 Rosuvastatin Calcium (Rosuvastatin Calcium) 20 Mg Tablet, 20 MG PO HS, (Reported) Entered as Reported by: BRIE ESCOTO on 01/24/22 1448 Review of Systems Review of Systems Constitutional: No fever EENTM: No Symptoms Reported Respiratory: No Symptoms Reported Cardiovascular: See HPI Gastrointestinal: No Symptoms Reported Genitourinary: No Symptoms Reported Musculoskeletal: no symptoms reported Skin: no symptoms reported Psychiatric/Neurological: No Symptoms Reported Past Hfjocio-Eimzmm-Rwsxxl Hx Patient Social History Substance use?: No Immunizations Up To Date First/Initial COVID19 Vaccinat: YES Second COVID19 Vaccination Klever: YES Third COVID19 Vaccination Date: YES Past Medical History Surgery/Hospitalization HX: CABG 03/03/22, BACK SURGERIES, KIDNEY STONES, APPENDECTOMY Surgeries: Yes (BACK SURGERY) Appendectomy, CABG, Coronary Stent, Orthopedic, Tonsillectomy Respiratory: No Asthma Currently Using CPAP: No Currently Using BIPAP: No Cardiac: Yes Coronary Artery Disease, High Cholesterol, Hypertension Neurological: No Genitourinary: Yes (DX 01/23/22) Kidney Stones Gastrointestinal: No Musculoskeletal: Yes Chronic Back Pain Endocrine: No HEENT: No Cancer: No Integumentary: No Blood Disorders: No Physical Exam Vital Signs Capillary Refill : Height, Weight, BMI Height: '" Weight: lbs. oz. kg; 27.59 BMI Method: General Appearance: No Apparent Distress, WD/WN HEENT: PERRL/EOMI, Normal ENT Inspection, Pharynx Normal Neck: Full Range of Motion, Normal Inspection, Non Tender, Supple Respiratory: Chest Non Tender, Lungs Clear, Normal Breath Sounds, No Accessory Muscle Use, No Respiratory Distress Cardiovascular: Regular Rate, Rhythm, No Edema, Normal Peripheral Pulses Gastrointestinal: Normal Bowel Sounds, Non Tender, Soft Extremity: Normal Capillary Refill, Normal Inspection, Normal Range of Motion, Non Tender, No Calf Tenderness, No Pedal Edema Neurologic/Psychiatric: Alert, No Motor/Sensory Deficits, Normal Mood/Affect Skin: Normal Color, Warm/Dry Progress/Results/Core Measures Results/Orders Lab Results Laboratory Tests Test 08/28/22 10:49 Range/Units White Blood Count 6.8 4.3-11.0 10^3/uL Red Blood Count 3.76 L 4.30-5.52 10^6/uL Hemoglobin 11.9 L 13.3-17.7 g/dL Hematocrit 35 L 40-54 % Mean Corpuscular Volume 93 80-99 fL Mean Corpuscular Hemoglobin 32 25-34 pg Mean Corpuscular Hemoglobin Concent 34 32-36 g/dL Red Cell Distribution Width 14.0 10.0-14.5 % Platelet Count 178 130-400 10^3/uL Mean Platelet Volume 10.2 9.0-12.2 fL Immature Granulocyte % (Auto) 0 % Neutrophils (%) (Auto) 62 42-75 % Lymphocytes (%) (Auto) 20 12-44 % Monocytes (%) (Auto) 10 0-12 % Eosinophils (%) (Auto) 6 0-10 % Basophils (%) (Auto) 1 0-10 % Neutrophils # (Auto) 4.2 1.8-7.8 10^3/uL Lymphocytes # (Auto) 1.4 1.0-4.0 10^3/uL Monocytes # (Auto) 0.7 0.0-1.0 10^3/uL Eosinophils # (Auto) 0.4 H 0.0-0.3 10^3/uL Basophils # (Auto) 0.1 0.0-0.1 10^3/uL Immature Granulocyte # (Auto) 0.0 0.0-0.1 10^3/uL Prothrombin Time 13.3 12.2-14.7 SEC INR Comment 1.0 0.8-1.4 Activated Partial Thromboplast Time 29 24-35 SEC Sodium Level 141 135-145 MMOL/L Potassium Level 4.0 3.6-5.0 MMOL/L Chloride Level 106 98-107 MMOL/L Carbon Dioxide Level 25 21-32 MMOL/L Anion Gap 10 5-14 MMOL/L Blood Urea Nitrogen 25 H 7-18 MG/DL Creatinine 1.09 0.60-1.30 MG/DL Estimat Glomerular Filtration Rate 72 BUN/Creatinine Ratio 23 Glucose Level 77 70-105 MG/DL Calcium Level 9.6 8.5-10.1 MG/DL Corrected Calcium 9.4 8.5-10.1 MG/DL Magnesium Level 1.9 1.6-2.4 MG/DL Total Bilirubin 0.5 0.1-1.0 MG/DL Aspartate Amino Transf (AST/SGOT) 17 5-34 U/L Alanine Aminotransferase (ALT/SGPT) 16 0-55 U/L Alkaline Phosphatase 71 40-136 U/L Myoglobin 54.7 <72.0 NG/ML Troponin I < 0.30 <0.30 NG/ML Pro-B-Type Natriuretic Peptide 792.4 H <125.0 PG/ML Total Protein 7.2 6.4-8.2 GM/DL Albumin 4.2 3.2-4.5 GM/DL Lipase 48 8-78 U/L My Orders Orders - LAMBERTO ZIEGLER MD Cbc With Automated Diff (08/28/22 10:58) Magnesium (08/28/22 10:58) Chest 1 View Ap/Pa Only (08/28/22 10:58) Ekg Tracing (08/28/22 10:58) Comprehensive Metabolic Panel (08/28/22 10:58) Myoglobin Serum (08/28/22 10:58) Protime With Inr (08/28/22 10:58) Partial Thromboplastin Time (08/28/22 10:58) O2 (08/28/22 10:58) Monitor-Rhythm Ecg Trace Only (08/28/22 10:58) Aspirin Chewable Tablet (Baby Aspirin Ch (08/28/22 11:00) Ed Iv/Invasive Line Start (08/28/22 10:58) Lipase (08/28/22 10:58) Troponin I Fs (08/28/22 10:58) Probnp Fs (08/28/22 10:58) Nitroglycerin Ointment (Nitrobid Ointme (08/28/22 11:00) Lidocaine 2% Viscous 15 Ml (Xylocaine Vi (08/28/22 11:00) Famotidine Tablet (Pepcid Tablet) (08/28/22 10:58) Antacid Suspension (Mylanta Suspension (08/28/22 11:00) Medications Given in ED Current Medications Medications Dose Ordered Sig/Pardeep Route Start Time Stop Time Status Last Admin Dose Admin Al Hydrox/Mg Hydrox/Simethicone 30 ml ONCE ONCE PO 08/28/22 11:00 08/28/22 11:02 DC 08/28/22 11:13 30 ML Aspirin 243 mg ONCE ONCE PO 08/28/22 11:00 08/28/22 11:02 DC 08/28/22 11:13 243 MG Lidocaine HCl 15 ml ONCE ONCE PO 08/28/22 11:00 08/28/22 11:02 DC 08/28/22 11:13 15 ML Nitroglycerin 1 inch ONCE ONCE TOP 08/28/22 11:00 08/28/22 11:02 DC 08/28/22 11:14 1 INCH Progress Progress Note : Progress Note 71-year-old male with above history coming in due to chest pain. ABCs were intact and vitals were stable on presentation. EKG appears similar to prior with no STEMI on my interpretation. Chest x-ray ordered interpreted by me showing no obvious pneumonia or pneumothorax. An IV was placed and basic labs were obtained including cardiac biomarkers. Troponin was negative, given constant pain for couple days, highly unlikely this is ACS related. I contacted Dr. Montes who also agrees that this could be noncardiac in nature and it is unlikely he restenosed the stent in the absence of any EKG changes or troponin elevation. He recommends following back up with his osteopathic neurologist as an outpatient unless symptoms change. Initial ECG Impression Date: Aug 28, 2022 Initial ECG Impression Time: 10:44 Initial ECG Rate: 59 Initial ECG Rhythm: S.Florentin Comment Narrow QRS, normal axis, subtle ST depression inferiorly, no STEMI, appears similar to prior EKG done within this month Diagnostic Imaging Diagonstic Imaging: Xray (chest) Comments [facility]. [place], [place] NAME: MARA BRUCE [facility] REC#: [id number] PT STATUS: REG ER : 1950 PHYSICIAN: LAMBERTO ZIEGLER MD ADMIT DATE: 08/28/22/ER FS Draft Date of Exam:08/28/22 CHEST 1 VIEW AP/PA ONLY INDICATION: Chest pain Portable AP upright view of the chest is obtained with comparison made to study of 04/28/2022. Heart size and pulmonary vascularity are within normal limits. There is no pneumothorax or consolidation. No pleural effusion. Surgical findings in the mediastinum are stable. IMPRESSION: No acute abnormality. Dictated on workstation # [id number] Dict: 08/28/22 1106 Trans: 08/28/22 1118 CV [id number] Interpreted by: FLOR MARY MD Electronically signed by: Departure Impression Primary Impression: Chest pain Qualified Codes: R07.82 - Intercostal pain Disposition: HOME, SELF-CARE Condition: Stable Departure-Patient Inst. Decision time for Depature: 12:29 Referrals: SELFCLAIRE MD (PCP) Primary Care Physician Patient Instructions: Chest Pain, Adult ED Add. Discharge Instructions: It does not appear like you are having heart attack. Our osteopathic neurologist wants you to call your regular osteopathic neurologist and have rapid follow-up. If symptoms change or have any other concerns of course she can come back to the ER. LAMBERTO ZIEGLER MD Aug 28, 2022 11:01
[2022-08-28 11:09] LABS: BASOPHILS # (AUTO) 0.1 10^3/uL (0.0-0.1); BASOPHILS % (AUTO) 1 % (0-10); EOSINOPHILS # (AUTO) 0.4 10^3/uL (0.0-0.3); EOSINOPHILS % (AUTO) 6 % (0-10); HEMATOCRIT 35 % (40-54); HEMOGLOBIN 11.9 g/dL (13.3-17.7); LYMPHOCYTES # (AUTO) 1.4 10^3/uL (1.0-4.0); LYMPHOCYTES % (AUTO) 20 % (12-44); MEAN CORPUSCULAR HEMOGLOBIN 32 pg (25-34); MEAN CORPUSCULAR HGB CONC 34 g/dL (32-36); MEAN CORPUSCULAR VOLUME 93 fL (80-99); MEAN PLATELET VOLUME 10.2 fL (9.0-12.2); MONOCYTES # (AUTO) 0.7 10^3/uL (0.0-1.0); MONOCYTES % (AUTO) 10 % (0-12); NEUTROPHILS # (AUTO) 4.2 10^3/uL (1.8-7.8); NEUTROPHILS % (AUTO) 62 % (42-75); PLATELET COUNT 178 10^3/uL (130-400); WHITE BLOOD COUNT 6.8 10^3/uL (4.3-11.0)
--- NOTE | 2022-08-28 11:18 | Diagnostic Imaging Report ---
INDICATION: Chest pain Portable AP upright view of the chest is obtained with comparison made to study of 04/28/2022. Heart size and pulmonary vascularity are within normal limits. There is no pneumothorax or consolidation. No pleural effusion. Surgical findings in the mediastinum are stable. IMPRESSION: No acute abnormality. Dictated by: Dictated on workstation # [id number]
[2022-08-28 11:52] LABS: PROTHROMBIN TIME PATIENT 13.3 SEC (12.2-14.7)
[2022-08-28 11:53] LABS: CREATININE SERUM 1.09 MG/DL (0.60-1.30)
[2022-08-28 11:54] LABS: ALBUMIN 4.2 GM/DL (3.2-4.5); BILIRUBIN,TOTAL 0.5 MG/DL (0.1-1.0); CALCIUM 9.6 MG/DL (8.5-10.1); MAGNESIUM 1.9 MG/DL (1.6-2.4); TOTAL PROTEIN 7.2 GM/DL (6.4-8.2)
[2022-08-28 12:32] VITALS: BP 122/62
== END 2022-08-28 12:32 | disposition home or self-care (01) ==
LOC: EDUNIT# 10:40 → ER FS 10:41
DX: R07.9 Chest pain, unspecified (principal); Z95.5 Presence of coronary angioplasty implant and graft; Z95.1 Presence of aortocoronary bypass graft; Z79.82 Long term (current) use of aspirin; Z79.02 Long term (current) use of antithrombotics/antiplatelets
CPT/HCPCS: 36415; 71045; 80053; 83690; 83735; 83874; 83880; 84484; 85025; 85610; 85730; 93005; 93041